=== PATIENT | male | born 1930 | race Caucasian/White ===

== ENCOUNTER 2018-03-29 09:55 | Inpatient (IN) | payer MEDICARE, MEDICAID ==
[~2018-03-29 09:55] MED LIST: Albuterol/Ipratropium 3.0-0.5 MG/3 ML Neb Soln ONE; methylPREDNISolone Sodium Succinate 125 MG/2 ML SDV ONE
[2018-03-29] MEDS ORDERED: Albuterol/Ipratropium 3.0-0.5 MG/3 ML Neb Soln NEB ONE ×2 (10:09→10:13)
[2018-03-29] MEDS ORDERED: methylPREDNISolone Sodium Succinate 125 MG/2 ML SDV IVPUSH SCH (10:15)
--- NOTE | 2018-03-29 10:57 | EDM.PDOC ---
ED HPI GENERAL MEDICAL PROBLEM - General Chief Complaint: General Stated Complaint: SOB Time Seen by Provider: 03/29/18 10:00 Source of Information: Reports: Patient, Family, Longterm Records History Limitations: Reports: Respiratory Distress - History of Present Illness INITIAL COMMENTS - FREE TEXT/NARRATIVE: Patient presents per [facility] with increased work of breathing, shortness of breath, low oxygen sats. He has been more short of breath over the last week. On Monday, was started on prednisone and a Zpack which have been completed. Switched to DuoNebs for 7 days. He is chronically on 2 liters of oxygen but has required 5 liters over the last week. Today, he leaned over on his right side and had increased shortness of breath. Unable to get his sats greater than 80% with any movement at all. EMS gave him a DuoNeb and switched him to CPAP on 7 liters. Was able to get adequate sats in the mid 90s with that. Patient is in respiratory distress with tachypnea on arrival but sats are adequate with CPAP. Onset: Gradual Duration: Day(s): Location: Reports: Chest Severity: Severe Improves with: Reports: Rest Worsens with: Reports: Movement Associated Symptoms: Reports: Cough, Shortness of Breath, Weakness. Denies: Confusion, Chest Pain, Fever/Chills, Nausea/Vomiting Treatments [employer]: Reports: Breathing Treatments, Oxygen - Related Data Allergies Allergy/AdvReac Type Severity Reaction Status Date / Time MUSHROOMS Allergy Cannot Uncoded 03/29/18 09:45 Remember Seafood Allergy Airway Uncoded 03/29/18 09:45 Tightness Home Meds: Home Meds Aspirin [Halfprin] 81 mg PO DAILY 06/06/14 [History] Multivitamin [Multi-Vitamin Daily] 1 tab PO DAILY 06/06/14 [History] Albuterol Sulfate [Ventolin Hfa] 2 inh INH QID 10/15/15 [History] Furosemide 20 mg PO DAILY 10/15/15 [History] Albuterol/Ipratropium [DuoNeb 3.0-0.5 MG/3 ML] 3 ml NEB QIDRT #28 neb 10/22/15 [ Rx] Past Medical History HEENT History: Reports: Macular Degeneration Cardiovascular History: Reports: Afib Respiratory History: Reports: COPD Gastrointestinal History: Reports: Cholelithiasis Neurological History: Reports: Other (See Below) Other Neuro History: DEMENTIA Endocrine/Metabolic History: Reports: Diabetes, Type II - Past Surgical History HEENT Surgical History: Reports: Cataract Surgery Cardiovascular Surgical History: Reports: Percutaneous Transluminal Angioplasty GI Surgical History: Reports: Cholecystectomy, Colonoscopy, EGD Social & Family History - Family History Family Medical History: Noncontributory - Tobacco Use Smoking Status *Q: Former Smoker Years of Tobacco use: 70 Used Tobacco, but Quit: Yes Month/Year Tobacco Last Used: 1995 ED ROS GENERAL - Review of Systems Review Of Systems: See Below Constitutional: Reports: Weakness. Denies: Fever, Chills, Malaise HEENT: Denies: Ear Pain, Rhinitis, Throat Pain Respiratory: Reports: Shortness of Breath, Cough Cardiovascular: Denies: Edema Endocrine: Reports: Fatigue GI/Abdominal: Denies: Abdominal Pain, Nausea, Vomiting : Reports: No Symptoms Musculoskeletal: Reports: No Symptoms Skin: Reports: No Symptoms ED EXAM, GENERAL - Physical Exam Exam: See Below Exam Limited By: No Limitations General Appearance: Alert, WD/WN, Severe Distress Ears: Normal External Exam, Normal TMs Nose: Normal Inspection, Normal Mucosa, No Blood Throat/Mouth: Normal Inspection, Normal Oropharynx Head: Normocephalic Neck: Normal Inspection, Supple Respiratory/Chest: Respiratory Distress, Decreased Breath Sounds, Rales, Wheezing Cardiovascular: No Edema, Other (atrial flutter noted on cardiac sonographer per EMS , confirmed with EKG) GI/Abdominal: Normal Bowel Sounds, Soft, Non-Tender Extremities: Normal Inspection Neurological: Alert, Oriented Skin Exam: Warm, Dry Course - Vital Signs Last Recorded V/S: Last Vital Signs Temp 98.3 F 03/29/18 10:10 Pulse 81 03/29/18 10:37 Resp 18 03/29/18 10:37 BP 123/75 03/29/18 10:10 Pulse Ox 92 L 03/29/18 10:37 - Orders/Labs/Meds Orders: Active Orders 24 hr Category Date Time Status RT Aerosol Therapy [RC] ASDIRECTED Care 03/29/18 10:10 Active RT Aerosol Therapy [RC] ASDIRECTED Care 03/29/18 10:13 Active Chest 1V Frontal [CR] Stat Exams 03/29/18 10:03 Taken methylPREDNISolone Sod Succ [Solu-MEDROL] Med 03/29/18 10:15 Active 125 mg IVPUSH STAT Medication Orders Methylprednisolone Sodium Succinate (Solu-Medrol) 125 mg IVPUSH STAT EMILEE Last Admin: 03/29/18 10:12 Dose: 125 mg Labs: Laboratory Tests 03/29/18 03/29/18 03/29/18 Range/Units 10:17 10:17 10:17 WBC 13.2 H (5.0-10.0) 10^3/uL RBC 4.24 L (4.50-6.00) 10^6/uL Hgb 12.2 L (14.0-18.0) g/dL Hct 39.7 L (40.0-54.0) % MCV 93.6 (82.0-94.0) fL MCH 28.8 (27.0-32.0) pg MCHC 30.7 L (33.0-38.0) g/dL RDW Coeff of Connie 15.7 H (11.0-15.0) % Plt Count 316 (150-400) 10^3/uL Add Manual Diff Yes Neutrophils % (Manual) 93 H (35-85) % Band Neutrophils % 1 (0-5) % Lymphocytes % (Manual) 3 L (21-55) % Monocytes % (Manual) 2 (2-12) % Eosinophils % (Manual) 1 (0-5) % Absolute Neutrophils 12.41 H (1.80-7.00) 10^3/uL Lymphocytes # (Manual) 0.40 L (1.00-4.80) 10^3/uL Monocytes # (Manual) 0.26 (0.00-0.80) 10^3/uL Eosinophils # (Manual) 0.13 (0.00-0.45) 10^3/uL D-Dimer, Quantitative 3.74 H (0.00-0.50) Sodium 141 (136-145) mEq/L Potassium 5.4 H (3.5-5.0) mEq/L Chloride 105 (98-106) mEq/L Carbon Dioxide 29 (21-32) mmol/L BUN 79 H* D (7-18) mg/dL Creatinine 2.2 H (0.7-1.3) mg/dL Est Cr Clr Drug Dosing 17.92 mL/min Estimated GFR (MDRD) 28 L (>=60) mL/min Glucose 104 H D (75-99) mg/dL Calcium 9.0 (8.4-10.1) mg/dL Total Bilirubin 1.1 H (0.0-1.0) mg/dL AST 37 (15-37) U/L ALT 72 (12-78) U/L Alkaline Phosphatase 125 H (46-116) U/L Lactate Dehydrogenase 236 H (100-190) U/L Troponin I < 0.017 (0.00-0.06) ng/mL C-Reactive Protein 16.3 H (0.2-0.8) mg/dL NT-Pro-B Natriuret Pep 8195 H (0-1000) pg/mL Total Protein 7.9 (6.4-8.2) g/dL Albumin 3.2 L (3.4-5.0) g/dL Meds: Medications Generic Name Dose Route Start Last Admin Trade Name Emely PRN Reason Stop Dose Admin Methylprednisolone Sodium Succinate 125 mg 03/29/18 10:15 03/29/18 10:12 Solu-Medrol IVPUSH 125 mg STAT EMILEE Administration Discontinued Medications Generic Name Dose Route Start Last Admin Trade Name Emely PRN Reason Stop Dose Admin Albuterol/Ipratropium Confirm 03/29/18 09:37 03/29/18 10:11 Duoneb 3.0-0.5 Mg/3 Ml Administered 03/29/18 09:38 Not Given Dose 3 ml .ROUTE .STK-MED ONE Albuterol/Ipratropium 3 ml 03/29/18 10:09 03/29/18 10:13 Duoneb 3.0-0.5 Mg/3 Ml NEB 03/29/18 10:10 3 ml ONETIME ONE Administration Albuterol/Ipratropium 3 ml 03/29/18 10:13 03/29/18 11:06 Duoneb 3.0-0.5 Mg/3 Ml NEB 03/29/18 10:14 3 ml ONETIME ONE Administration Furosemide 40 mg 03/29/18 11:04 03/29/18 11:09 Lasix IVPUSH 03/29/18 11:05 40 mg ONETIME ONE Administration Methylprednisolone Sodium Succinate Confirm 03/29/18 09:49 03/29/18 10:11 Solu-Medrol Administered 03/29/18 09:50 Not Given Dose 125 mg .ROUTE .STK-MED ONE - Re-Assessments/Exams Free Text/Narrative Re-Assessment/Exam: 03/29/18 Patient given DuoNeb and IV solu Medrol on arrival. Able to wean him down to 5 liters and maintains sats at 90-92%. Labs reviewed, chest xray. Show elevated ProBNP, elevated D-Dimer, creatinine 2.2. CRP elevated at 16. WBC 13.2. D-Dimer 3.74. Chest xray shows venous congestion. Discussed status with son Wes, questioned if they would like the patient transferred due to CHF, questionable PE, kidney failure, hyperkalemia, and respiratory distress. Patient remains adamant about being a DNR, does not want intubation. Family would like treated here if possible. Departure - Departure Time of Disposition: 12:48 Disposition: Admitted As Inpatient 65 Condition: Undetermined Clinical Impression: CHF, Congestive heart failure COPD (chronic obstructive pulmonary disease) Qualifiers: COPD type: COPD with acute exacerbation Qualified Code(s): J44.1 - Chronic obstructive pulmonary disease with (acute) exacerbation Pneumonia Qualifiers: Pneumonia type: due to unspecified organism Laterality: right Lung location: lower lobe of lung Qualified Code(s): J18.9 - Pneumonia, unspecified organism - Discharge Information *PRESCRIPTION DRUG MONITORING PROGRAM REVIEWED*: No *COPY OF PRESCRIPTION DRUG MONITORING REPORT IN PATIENT ELLEN: No Forms: ED Department Discharge - Problem List & Annotations (1) Pneumonia SNOMED Code(s): 357126853 Code(s): J18.9 - PNEUMONIA, UNSPECIFIED ORGANISM Status: Acute Priority: High Current Visit: Yes Qualifiers: Pneumonia type: aspiration pneumonia Laterality: bilateral Lung location : lower lobe of lung Qualified Code(s): J18.9 - Pneumonia, unspecified organism (2) COPD (chronic obstructive pulmonary disease) SNOMED Code(s): 10445706 Code(s): J44.9 - CHRONIC OBSTRUCTIVE PULMONARY DISEASE, UNSPECIFIED Status : Acute Priority: High Current Visit: Yes Qualifiers: COPD type: COPD with acute exacerbation Qualified Code(s): J44.1 - Chronic obstructive pulmonary disease with (acute) exacerbation (3) CHF, Congestive heart failure SNOMED Code(s): 40628145 Code(s): I50.9 - HEART FAILURE, UNSPECIFIED Status: Acute Priority: High Current Visit: Yes Annotation/Comment:: Acute on Chronic Systolic Congestive Heart Failure - Problem List Review Problem List Initiated/Reviewed/Updated: Yes - My Orders Last 24 Hours: My Active Orders 03/29/18 10:03 Chest 1V Frontal [CR] Stat 03/29/18 10:10 RT Aerosol Therapy [RC] ASDIRECTED 03/29/18 10:13 RT Aerosol Therapy [RC] ASDIRECTED 03/29/18 10:15 methylPREDNISolone Sod Succ [Solu-MEDROL] 125 mg IVPUSH STAT - Assessment/Plan Admission H&P: Please use this note as an admission H&P Last 24 Hours: My Active Orders 03/29/18 10:03 Chest 1V Frontal [CR] Stat 03/29/18 10:10 RT Aerosol Therapy [RC] ASDIRECTED 03/29/18 10:13 RT Aerosol Therapy [RC] ASDIRECTED 03/29/18 10:15 methylPREDNISolone Sod Succ [Solu-MEDROL] 125 mg IVPUSH STAT Assessment:: Palliative Care Patient Acute on Chronic CHF- systolic COPD with acute exacerbation Question PE Question Aspiration Pneumonia Hyperkalemia CKD Plan: Palliative care patient admitted to inpatient care to Dr. Lema. IV Lasix for acute on chronic CHF. Will cover him with IV Cleocin for concerns of aspiration pneumonia. Lovenox SQ for questionable PE. Duplex US of his legs to rule out clot as creatinine too high in order to do CTA of chest. Chronic Kidney disease.
[2018-03-29] MEDS ORDERED: Furosemide 40 MG/4 ML VIAL IVPUSH ONE (11:04)
[2018-03-29 11:14] LABS: CHLORIDE,CL 105 mEq/L (98-106); SODIUM,NA 141 mEq/L (136-145)
[2018-03-29] MEDS ORDERED: Sodium Chloride 0.9% 10 ML Syringe FLUSH PRN (13:14)
[2018-03-29] MEDS ORDERED: Acetaminophen 325 MG Tab PO PRN (13:14)
[2018-03-29] MEDS ORDERED: Enoxaparin 40 MG/0.4 ML Syringe SUBCUT SCH (13:15)
[2018-03-29] MEDS: Clindamycin Phosphate in D5W 300 MG in Premix Bag 1 BAG IV SCH ×4 (14:48→20:12)
[2018-03-29] MEDS: Enoxaparin 80 MG/0.8 ML Syringe SUBCUT SCH (14:48)
[2018-03-29] MEDS: Albuterol/Ipratropium 3.0-0.5 MG/3 ML Neb Soln NEB SCH ×2 (15:29→20:10)
[2018-03-29] MEDS: Furosemide 40 MG/4 ML VIAL IVPUSH SCH (20:04)
[2018-03-29] MEDS: amLODIPine 2.5 MG Tab PO SCH (20:16)
[2018-03-29] MEDS: Acetaminophen 500 MG Tab PO SCH (20:16)
[2018-03-29] MEDS: Formoterol/Mometasone 200-5 MCG 8.8 GM Inhaler IH SCH (20:20)
[2018-03-30] MEDS: Clindamycin Phosphate in D5W 300 MG in Premix Bag 1 BAG IV SCH ×8 (02:15→19:49)
[2018-03-30] MEDS: Aspirin 81 MG Tab.EC PO SCH (07:34)
[2018-03-30] MEDS: Enoxaparin 80 MG/0.8 ML Syringe SUBCUT SCH (07:34)
[2018-03-30] MEDS: Albuterol/Ipratropium 3.0-0.5 MG/3 ML Neb Soln NEB SCH ×4 (07:36→19:49)
[2018-03-30] MEDS: Formoterol/Mometasone 200-5 MCG 8.8 GM Inhaler IH SCH ×2 (07:36→19:50)
[2018-03-30] MEDS: Acetaminophen 500 MG Tab PO SCH ×2 (07:36→19:49)
[2018-03-30] MEDS: Polyvinyl Alcohol 1.4% Ophth Soln 15 ML Bottle EYEBOTH SCH (07:40)
[2018-03-30] MEDS: Insulin Detemir 100 Units/ML 3 ML Pen SUBCUT SCH (07:46)
[2018-03-30] MEDS: Furosemide 40 MG/4 ML VIAL IVPUSH SCH (08:05)
--- NOTE | 2018-03-30 13:51 | PCM.PN ---
- General Info Date of Service: 03/30/18 Admission Dx/Problem (Free Text): Acute on Chronic CHF Pneumonia COPD Exacerbation Elevated D-Dimer Palliative Care patient Functional Status: Reports: Pain Controlled, Tolerating Diet, Other (clark cath intact, draining bloody urine). Denies: Ambulating - Review of Systems General: Reports: Weakness, Fatigue. Denies: Fever HEENT: Reports: No Symptoms Pulmonary: Reports: Shortness of Breath, Cough Cardiovascular: Denies: Chest Pain, Edema, Lightheadedness Gastrointestinal: Denies: Abdominal Pain, Nausea, Vomiting Genitourinary: Reports: Hematuria, Other (intact catheter) Musculoskeletal: Reports: No Symptoms Skin: Reports: No Symptoms Neurological: Reports: Confusion, Weakness Psychiatric: Reports: No Symptoms - Patient Data Vitals - Most Recent: Last Vital Signs Temp 98.1 F 03/30/18 11:49 Pulse 70 03/30/18 11:49 Resp 20 03/30/18 11:49 BP 124/46 L 03/30/18 11:49 Pulse Ox 95 03/30/18 11:49 Weight - Most Recent: 140 lb 9.6 oz I&O - Last 24 Hours: Intake & Output 03/29/18 03/30/18 03/30/18 22:59 06:59 14:59 Intake Total 100 650 250 Output Total 800 600 250 Balance -700 50 0 Lab Results Last 24 Hours: Laboratory Results - last 24 hr 03/29/18 03/30/18 03/30/18 Range/Units 21:53 06:50 06:50 WBC 13.9 H (5.0-10.0) 10^3/uL RBC 3.86 L (4.50-6.00) 10^6/uL Hgb 11.1 L (14.0-18.0) g/dL Hct 35.4 L (40.0-54.0) % MCV 91.7 (82.0-94.0) fL MCH 28.8 (27.0-32.0) pg MCHC 31.4 L (33.0-38.0) g/dL RDW Coeff of Connie 15.0 (11.0-15.0) % Plt Count 296 (150-400) 10^3/uL Add Manual Diff Yes Neutrophils % (Manual) 92 H (35-85) % Lymphocytes % (Manual) 3 L (21-55) % Monocytes % (Manual) 5 (2-12) % Sodium 138 (136-145) mEq/L Potassium 4.6 (3.5-5.0) mEq/L Chloride 101 (98-106) mEq/L Carbon Dioxide 28 (21-32) mmol/L BUN 87 H* (7-18) mg/dL Creatinine 2.3 H (0.7-1.3) mg/dL Est Cr Clr Drug Dosing 17.14 mL/min Estimated GFR (MDRD) 27 L (>=60) mL/min Glucose 199 H D (75-99) mg/dL POC Glucose 253 H (75-105) mg/dl Calcium 8.9 (8.4-10.1) mg/dL C-Reactive Protein 16.4 H (0.2-0.8) mg/dL 03/30/18 03/30/18 Range/Units 07:21 11:39 WBC (5.0-10.0) 10^3/uL RBC (4.50-6.00) 10^6/uL Hgb (14.0-18.0) g/dL Hct (40.0-54.0) % MCV (82.0-94.0) fL MCH (27.0-32.0) pg MCHC (33.0-38.0) g/dL RDW Coeff of Connie (11.0-15.0) % Plt Count (150-400) 10^3/uL Add Manual Diff Neutrophils % (Manual) (35-85) % Lymphocytes % (Manual) (21-55) % Monocytes % (Manual) (2-12) % Sodium (136-145) mEq/L Potassium (3.5-5.0) mEq/L Chloride (98-106) mEq/L Carbon Dioxide (21-32) mmol/L BUN (7-18) mg/dL Creatinine (0.7-1.3) mg/dL Est Cr Clr Drug Dosing mL/min Estimated GFR (MDRD) (>=60) mL/min Glucose (75-99) mg/dL POC Glucose 190 H 251 H (75-105) mg/dl Calcium (8.4-10.1) mg/dL C-Reactive Protein (0.2-0.8) mg/dL Med Orders - Current: Current Medications Acetaminophen (Tylenol) 650 mg PO Q4H PRN PRN Reason: Pain (Mild 1-3)/fever Acetaminophen (Tylenol Extra Strength) 1,000 mg PO BID [facility] Last Admin: 03/30/18 07:36 Dose: 1,000 mg Albuterol/Ipratropium (Duoneb 3.0-0.5 Mg/3 Ml) 3 ml NEB QIDRT [facility] Last Admin: 03/30/18 11:37 Dose: 3 ml Amlodipine Besylate (Norvasc) 5 mg PO BEDTIME [facility] Last Admin: 03/29/18 20:16 Dose: 5 mg Artificial Tears (Liquitears 1.4% Ophth Soln) 0 ml EYEBOTH DAILY [facility] Last Admin: 03/30/18 07:40 Dose: 1 drop Aspirin (Halfprin) 81 mg PO DAILY [facility] Last Admin: 03/30/18 07:34 Dose: 81 mg Bisacodyl (Dulcolax) 5 mg PO DAILY PRN PRN Reason: Constipation Enoxaparin Sodium (Lovenox) 70 mg SUBCUT DAILY [facility] Last Admin: 03/30/18 07:34 Dose: 70 mg Furosemide (Lasix) 40 mg IVPUSH DAILY [facility] Clindamycin Phosphate 300 mg/ (Premix) 50 mls @ 100 mls/hr IV Q6H [facility] Last Admin: 03/30/18 13:27 Dose: 100 mls/hr Insulin Detemir (Levemir) 22 unit SUBCUT DAILY [facility] Last Admin: 03/30/18 07:46 Dose: 22 units Mometasone Furoate/Formoterol Fumar (Dulera 200-5 Mcg) 2 puff IH BIDRT [facility] Last Admin: 03/30/18 07:36 Dose: 2 puff Sodium Chloride (Saline Flush) 10 ml FLUSH ASDIRECTED PRN PRN Reason: Keep Vein Open Discontinued Medications Albuterol/Ipratropium (Duoneb 3.0-0.5 Mg/3 Ml) Confirm Administered Dose 3 ml .ROUTE .STK-MED ONE Stop: 03/29/18 09:38 Last Admin: 03/29/18 10:11 Dose: Not Given Albuterol/Ipratropium (Duoneb 3.0-0.5 Mg/3 Ml) 3 ml NEB ONETIME ONE Stop: 03/29/18 10:10 Last Admin: 10/04/18 10:13 Dose: 3 ml Albuterol/Ipratropium (Duoneb 3.0-0.5 Mg/3 Ml) 3 ml NEB ONETIME ONE Stop: 03/29/18 10:14 Last Admin: 03/29/18 11:06 Dose: 3 ml Enoxaparin Sodium (Lovenox) 60 mg SUBCUT BID [facility] Last Admin: 03/29/18 14:26 Dose: Not Given Furosemide (Lasix) 40 mg IVPUSH ONETIME ONE Stop: 03/29/18 11:05 Last Admin: 03/29/18 11:09 Dose: 40 mg Furosemide (Lasix) 40 mg IVPUSH BID [facility] Last Admin: 03/30/18 08:05 Dose: 40 mg Methylprednisolone Sodium Succinate (Solu-Medrol) Confirm Administered Dose 125 mg .ROUTE .STK-MED ONE Stop: 03/29/18 09:50 Last Admin: 03/29/18 10:11 Dose: Not Given Methylprednisolone Sodium Succinate (Solu-Medrol) 125 mg IVPUSH STAT [facility] Last Admin: 03/29/18 10:12 Dose: 125 mg - Exam Quality Assessment: Supplemental Oxygen General: Alert, Oriented (person only) HEENT: Mucous Membr. Moist/Zarate Neck: Supple Lungs: Decreased Breath Sounds, Crackles, Rhonchi Cardiovascular: Regular Rate, Regular Rhythm GI/Abdominal Exam: Normal Bowel Sounds, Soft, Non-Tender Extremities: Normal Inspection, No Pedal Edema Skin: Warm, Dry Neurological: No New Focal Deficit - Problem List & Annotations (1) Pneumonia SNOMED Code(s): 157267612 Code(s): J18.9 - PNEUMONIA, UNSPECIFIED ORGANISM Status: Acute Priority: High Current Visit: Yes Qualifiers: Laterality: bilateral Lung location: lower lobe of lung Qualified Code(s) : J18.9 - Pneumonia, unspecified organism (2) COPD (chronic obstructive pulmonary disease) SNOMED Code(s): 52934214 Code(s): J44.9 - CHRONIC OBSTRUCTIVE PULMONARY DISEASE, UNSPECIFIED Status : Acute Priority: High Current Visit: Yes Qualifiers: COPD type: COPD with acute exacerbation Qualified Code(s): J44.1 - Chronic obstructive pulmonary disease with (acute) exacerbation (3) CHF, Congestive heart failure SNOMED Code(s): 59946771 Code(s): I50.9 - HEART FAILURE, UNSPECIFIED Status: Acute Priority: High Current Visit: Yes Annotation/Comment:: Acute on Chronic Systolic Congestive Heart Failure (4) Palliative care patient SNOMED Code(s): 537247999 Code(s): Z51.5 - ENCOUNTER FOR PALLIATIVE CARE Status: Acute Current Visit: Yes - Problem List Review Problem List Initiated/Reviewed/Updated: Yes - My Orders Last 24 Hours: My Active Orders 03/29/18 13:03 Resuscitation Status Routine 03/29/18 13:14 Patient Status [ADT] Routine Bedrest Bedside Commode [RC] .PRN Cardiac Monitoring [RC] 0800,1999 Oxygen Therapy [RC] 2355 RT Aerosol Therapy [RC] 0800,1200,1600,1999 Urinary Catheter Assessment [RC] 0800,1999 Vital Signs [RC] 0000,0400,0800,1200,1600,2000 VL Duplex Lwr Ext Veins Comp [US] Routine Acetaminophen [Tylenol] 650 mg PO Q4H PRN Bisacodyl [Dulcolax] 5 mg PO DAILY PRN Sodium Chloride 0.9% [Saline Flush] 10 ml FLUSH ASDIRECTED PRN Saline Lock Insert [OM.PC] Routine 03/29/18 13:15 Insert Urinary Catheter [OM.PC] Q24H 03/29/18 14:00 Clindamycin Phosphate in D5W [Cleocin in D5W] 300 mg Premix Bag 1 bag IV Q6H Enoxaparin [Lovenox] 70 mg SUBCUT DAILY 03/29/18 16:00 Albuterol/Ipratropium [DuoNeb 3.0-0.5 MG/3 ML] 3 ml NEB QIDRT 03/29/18 20:00 Acetaminophen [Tylenol Extra Strength] 1,000 mg PO BID Mometasone/Formoterol [Dulera 200-5 MCG] 2 puff IH BIDRT amLODIPine [Norvasc] 5 mg PO BEDTIME 03/29/18 20:30 Blood Glucose Check, Bedside [] 0730,1130,1730,2030 03/29/18 Dinner 2 Gram Sodium Diet [DIET] 03/30/18 05:00 Daily Weight [Height and Weight] [RC] 0500 03/30/18 08:00 Aspirin [Halfprin] 81 mg PO DAILY Insulin Detemir [Levemir] 22 unit SUBCUT DAILY Polyvinyl Alcohol [LiquiTears 1.4% Ophth Soln] 0 ml EYEBOTH DAILY 03/30/18 08:05 Chest 2V [CR] Routine 03/31/18 08:00 Furosemide [Lasix] 40 mg IVPUSH DAILY - Assessment Assessment:: Patient is alert today, conversing. Oriented to person. Much less respiratory distress than yesterday. On 5 liters of oxygen with sats at 98%. Afebrile. Blood pressure stable. He has pulled at his catheter so does have bloody drainage noted today. Good urine output noted. Labs noted to be high but stable in comparison to yesterday. WBC 13.9, Creatinine 2.3, CRP 16.4. Ultrasound of legs was normal. Will get repeat chest xray today. Decrease Lasix to 40 mg daily. Continue IV Cleocin. Repeat labs in am.
[2018-03-30] MEDS: amLODIPine 2.5 MG Tab PO SCH (19:49)
[2018-03-31] MEDS: Clindamycin Phosphate in D5W 300 MG in Premix Bag 1 BAG IV SCH ×8 (02:15→20:03)
[2018-03-31] MEDS: Enoxaparin 80 MG/0.8 ML Syringe SUBCUT SCH (07:54)
[2018-03-31] MEDS: Albuterol/Ipratropium 3.0-0.5 MG/3 ML Neb Soln NEB SCH ×4 (07:56→20:03)
[2018-03-31] MEDS: Polyvinyl Alcohol 1.4% Ophth Soln 15 ML Bottle EYEBOTH SCH (07:57)
[2018-03-31] MEDS: Insulin Detemir 100 Units/ML 3 ML Pen SUBCUT SCH (07:58)
[2018-03-31] MEDS: Formoterol/Mometasone 200-5 MCG 8.8 GM Inhaler IH SCH ×2 (08:05→20:05)
[2018-03-31] MEDS: Acetaminophen 500 MG Tab PO SCH ×2 (08:06→20:04)
[2018-03-31] MEDS: Aspirin 81 MG Tab.EC PO SCH (08:07)
[2018-03-31] MEDS: Furosemide 40 MG/4 ML VIAL IVPUSH SCH (08:07)
--- NOTE | 2018-03-31 14:36 | PCM.PN ---
- General Info Date of Service: 03/31/18 Functional Status: Reports: Pain Controlled - Review of Systems General: Denies: Fever HEENT: Reports: No Symptoms Pulmonary: Reports: Shortness of Breath, Cough Cardiovascular: Denies: Chest Pain Gastrointestinal: Denies: Abdominal Pain, Diarrhea, Nausea, Vomiting Genitourinary: Reports: Hematuria Musculoskeletal: Denies: Neck Pain Skin: Reports: No Symptoms Neurological: Denies: Dizziness, Headache - Patient Data Vitals - Most Recent: Last Vital Signs Temp 36.9 C 03/31/18 11:39 Pulse 89 03/31/18 11:39 Resp 20 03/31/18 11:39 BP 135/56 L 03/31/18 11:39 Pulse Ox 95 03/31/18 11:39 Weight - Most Recent: 68.356 kg I&O - Last 24 Hours: Intake & Output 03/30/18 03/31/18 03/31/18 22:59 06:59 14:59 Intake Total 485 650 850 Output Total 650 500 Balance -165 150 850 Lab Results Last 24 Hours: Laboratory Results - last 24 hr 03/30/18 03/30/18 03/31/18 Range/Units 16:54 20:22 06:50 WBC 12.1 H (5.0-10.0) 10^3/uL RBC 3.77 L (4.50-6.00) 10^6/uL Hgb 10.8 L (14.0-18.0) g/dL Hct 34.3 L (40.0-54.0) % MCV 91.0 (82.0-94.0) fL MCH 28.6 (27.0-32.0) pg MCHC 31.5 L (33.0-38.0) g/dL RDW Coeff of Connie 15.3 H (11.0-15.0) % Plt Count 314 (150-400) 10^3/uL Neut % (Auto) 84.7 (35-85) % Lymph % (Auto) 5.2 L (10-55) % [place] % (Auto) 9.5 (0-16) % Eos % (Auto) 0.5 (0-5) % Baso % (Auto) 0.1 (0-3) % Neut # (Auto) 10.20 H (1.80-7.00) 10^3/uL Lymph # (Auto) 0.63 L (1.00-4.80) 10^3/uL [place] # (Auto) 1.15 H (0.00-0.80) 10^3/uL Eos # (Auto) 0.06 (0.00-0.45) 10^3/uL Baso # (Auto) 0.01 10^3/uL Sodium (136-145) mEq/L Potassium (3.5-5.0) mEq/L Chloride (98-106) mEq/L Carbon Dioxide (21-32) mmol/L BUN (7-18) mg/dL Creatinine (0.7-1.3) mg/dL Est Cr Clr Drug Dosing mL/min Estimated GFR (MDRD) (>=60) mL/min Glucose (75-99) mg/dL POC Glucose 152 H 228 H (75-105) mg/dl Calcium (8.4-10.1) mg/dL C-Reactive Protein (0.2-0.8) mg/dL 03/31/18 03/31/18 03/31/18 Range/Units 06:50 07:47 11:38 WBC (5.0-10.0) 10^3/uL RBC (4.50-6.00) 10^6/uL Hgb (14.0-18.0) g/dL Hct (40.0-54.0) % MCV (82.0-94.0) fL MCH (27.0-32.0) pg MCHC (33.0-38.0) g/dL RDW Coeff of Connie (11.0-15.0) % Plt Count (150-400) 10^3/uL Neut % (Auto) (35-85) % Lymph % (Auto) (10-55) % [place] % (Auto) (0-16) % Eos % (Auto) (0-5) % Baso % (Auto) (0-3) % Neut # (Auto) (1.80-7.00) 10^3/uL Lymph # (Auto) (1.00-4.80) 10^3/uL [place] # (Auto) (0.00-0.80) 10^3/uL Eos # (Auto) (0.00-0.45) 10^3/uL Baso # (Auto) 10^3/uL Sodium 136 (136-145) mEq/L Potassium 4.7 (3.5-5.0) mEq/L Chloride 100 (98-106) mEq/L Carbon Dioxide 28 (21-32) mmol/L BUN 103 H* (7-18) mg/dL Creatinine 2.4 H (0.7-1.3) mg/dL Est Cr Clr Drug Dosing 16.43 mL/min Estimated GFR (MDRD) 26 L (>=60) mL/min Glucose 150 H (75-99) mg/dL POC Glucose 129 H 211 H (75-105) mg/dl Calcium 8.2 L (8.4-10.1) mg/dL C-Reactive Protein 10.9 H (0.2-0.8) mg/dL Med Orders - Current: Current Medications Acetaminophen (Tylenol) 650 mg PO Q4H PRN PRN Reason: Pain (Mild 1-3)/fever Acetaminophen (Tylenol Extra Strength) 1,000 mg PO BID [facility] Last Admin: 03/31/18 08:06 Dose: 1,000 mg Albuterol/Ipratropium (Duoneb 3.0-0.5 Mg/3 Ml) 3 ml NEB QIDRT [facility] Last Admin: 03/31/18 11:37 Dose: 3 ml Amlodipine Besylate (Norvasc) 5 mg PO BEDTIME [facility] Last Admin: 03/30/18 19:49 Dose: 5 mg Artificial Tears (Liquitears 1.4% Ophth Soln) 0 ml EYEBOTH DAILY [facility] Last Admin: 03/31/18 07:57 Dose: 1 drop Aspirin (Halfprin) 81 mg PO DAILY [facility] Last Admin: 03/31/18 08:07 Dose: 81 mg Bisacodyl (Dulcolax) 5 mg PO DAILY PRN PRN Reason: Constipation Enoxaparin Sodium (Lovenox) 70 mg SUBCUT DAILY [facility] Last Admin: 03/31/18 07:54 Dose: 70 mg Furosemide (Lasix) 40 mg IVPUSH DAILY [facility] Last Admin: 03/31/18 08:07 Dose: 40 mg Clindamycin Phosphate 300 mg/ (Premix) 50 mls @ 100 mls/hr IV Q6H [facility] Last Admin: 03/31/18 13:46 Dose: 100 mls/hr Insulin Detemir (Levemir) 22 unit SUBCUT DAILY [facility] Last Admin: 03/31/18 07:58 Dose: 22 units Mometasone Furoate/Formoterol Fumar (Dulera 200-5 Mcg) 2 puff IH BIDRT [facility] Last Admin: 03/31/18 08:05 Dose: 2 puff Sodium Chloride (Saline Flush) 10 ml FLUSH ASDIRECTED PRN PRN Reason: Keep Vein Open Discontinued Medications Albuterol/Ipratropium (Duoneb 3.0-0.5 Mg/3 Ml) Confirm Administered Dose 3 ml .ROUTE .STK-MED ONE Stop: 03/29/18 09:38 Last Admin: 03/29/18 10:11 Dose: Not Given Albuterol/Ipratropium (Duoneb 3.0-0.5 Mg/3 Ml) 3 ml NEB ONETIME ONE Stop: 03/29/18 10:10 Last Admin: 03/29/18 10:13 Dose: 3 ml Albuterol/Ipratropium (Duoneb 3.0-0.5 Mg/3 Ml) 3 ml NEB ONETIME ONE Stop: 03/29/18 10:14 Last Admin: 03/29/18 11:06 Dose: 3 ml Enoxaparin Sodium (Lovenox) 60 mg SUBCUT BID [facility] Last Admin: 03/29/18 14:26 Dose: Not Given Furosemide (Lasix) 40 mg IVPUSH ONETIME ONE Stop: 03/29/18 11:05 Last Admin: 03/29/18 11:09 Dose: 40 mg Furosemide (Lasix) 40 mg IVPUSH BID [facility] Last Admin: 03/30/18 08:05 Dose: 40 mg Methylprednisolone Sodium Succinate (Solu-Medrol) Confirm Administered Dose 125 mg .ROUTE .STK-MED ONE Stop: 03/29/18 09:50 Last Admin: 03/29/18 10:11 Dose: Not Given Methylprednisolone Sodium Succinate (Solu-Medrol) 125 mg IVPUSH STAT [facility] Last Admin: 03/29/18 10:12 Dose: 125 mg - Exam Quality Assessment: Supplemental Oxygen General: Alert, Oriented Lungs: Crackles, Rhonchi Cardiovascular: Regular Rate, Regular Rhythm GI/Abdominal Exam: Soft Peripheral Pulses: 2+: Radial (L), Radial (R) Skin: Warm, Dry, Intact Neurological: No New Focal Deficit Psy/Mental Status: Alert - Problem List Review Problem List Initiated/Reviewed/Updated: Yes - Assessment Assessment:: Patient is alert today, conversing. Oriented to person. Much less respiratory distress than yesterday. On 5 liters of oxygen with sats at 98%. Afebrile. Blood pressure stable. He has pulled at his catheter so does have bloody drainage noted today. Good urine output noted. Labs noted to be high but stable in comparison to yesterday. WBC 13.9, Creatinine 2.3, CRP 16.4. Ultrasound of legs was normal. Will get repeat chest xray today. Decrease Lasix to 40 mg daily. Continue IV Cleocin. Repeat labs in am. 03/31/18 No significant change from previous exam. BUN climbing but appears stable. Labs otherwise stable. Repeat labs in AM.
[2018-03-31] MEDS: amLODIPine 2.5 MG Tab PO SCH (20:03)
[2018-03-31] MEDS: Bisacodyl 5 MG Tab PO PRN (20:04)
[2018-04-01] MEDS: Clindamycin Phosphate in D5W 300 MG in Premix Bag 1 BAG IV SCH ×8 (01:45→19:53)
[2018-04-01] MEDS: Albuterol/Ipratropium 3.0-0.5 MG/3 ML Neb Soln NEB SCH ×4 (08:04→19:53)
[2018-04-01] MEDS: Furosemide 40 MG/4 ML VIAL IVPUSH SCH (08:04)
[2018-04-01] MEDS: Aspirin 81 MG Tab.EC PO SCH (08:04)
[2018-04-01] MEDS: Enoxaparin 80 MG/0.8 ML Syringe SUBCUT SCH (08:04)
[2018-04-01] MEDS: Acetaminophen 500 MG Tab PO SCH ×2 (08:04→19:53)
[2018-04-01] MEDS: Formoterol/Mometasone 200-5 MCG 8.8 GM Inhaler IH SCH ×2 (08:05→19:53)
[2018-04-01] MEDS: Polyvinyl Alcohol 1.4% Ophth Soln 15 ML Bottle EYEBOTH SCH (08:05)
[2018-04-01] MEDS: Insulin Detemir 100 Units/ML 3 ML Pen SUBCUT SCH (08:06)
--- NOTE | 2018-04-01 18:47 | PCM.PN ---
- General Info Date of Service: 04/01/18 Functional Status: Reports: Pain Controlled - Review of Systems General: Reports: Weakness, Fatigue. Denies: Fever HEENT: Reports: No Symptoms Pulmonary: Reports: Shortness of Breath, Cough Cardiovascular: Denies: Chest Pain Gastrointestinal: Denies: Abdominal Pain, Nausea, Vomiting Skin: Reports: No Symptoms - Patient Data Vitals - Most Recent: Last Vital Signs Temp 36.7 C 04/01/18 16:00 Pulse 69 04/01/18 16:00 Resp 20 04/01/18 16:00 BP 134/51 L 04/01/18 16:00 Pulse Ox 91 L 04/01/18 16:00 Weight - Most Recent: 66.996 kg I&O - Last 24 Hours: Intake & Output 04/01/18 04/01/18 04/01/18 06:59 14:59 22:59 Intake Total 524 50 700 Output Total 500 1125 Balance 24 50 -425 Lab Results Last 24 Hours: Laboratory Results - last 24 hr 03/31/18 03/31/18 04/01/18 Range/Units 17:19 20:30 07:00 WBC 10.9 H (5.0-10.0) 10^3/uL RBC 3.84 L (4.50-6.00) 10^6/uL Hgb 11.2 L (14.0-18.0) g/dL Hct 35.0 L (40.0-54.0) % MCV 91.1 (82.0-94.0) fL MCH 29.2 (27.0-32.0) pg MCHC 32.0 L (33.0-38.0) g/dL RDW Coeff of Connie 15.3 H (11.0-15.0) % Plt Count 339 (150-400) 10^3/uL Add Manual Diff Yes Neutrophils % (Manual) 75 (35-85) % Band Neutrophils % 3 (0-5) % Lymphocytes % (Manual) 9 L (21-55) % Monocytes % (Manual) 7 (2-12) % Eosinophils % (Manual) 4 (0-5) % Metamyelocytes % 2 % Sodium (136-145) mEq/L Potassium (3.5-5.0) mEq/L Chloride (98-106) mEq/L Carbon Dioxide (21-32) mmol/L BUN (7-18) mg/dL Creatinine (0.7-1.3) mg/dL Est Cr Clr Drug Dosing mL/min Estimated GFR (MDRD) (>=60) mL/min Glucose (75-99) mg/dL POC Glucose 98 161 H (75-105) mg/dl Calcium (8.4-10.1) mg/dL C-Reactive Protein (0.2-0.8) mg/dL 04/01/18 04/01/18 04/01/18 Range/Units 07:00 07:39 11:38 WBC (5.0-10.0) 10^3/uL RBC (4.50-6.00) 10^6/uL Hgb (14.0-18.0) g/dL Hct (40.0-54.0) % MCV (82.0-94.0) fL MCH (27.0-32.0) pg MCHC (33.0-38.0) g/dL RDW Coeff of Connie (11.0-15.0) % Plt Count (150-400) 10^3/uL Add Manual Diff Neutrophils % (Manual) (35-85) % Band Neutrophils % (0-5) % Lymphocytes % (Manual) (21-55) % Monocytes % (Manual) (2-12) % Eosinophils % (Manual) (0-5) % Metamyelocytes % % Sodium 137 (136-145) mEq/L Potassium 4.9 (3.5-5.0) mEq/L Chloride 100 (98-106) mEq/L Carbon Dioxide 30 (21-32) mmol/L BUN 107 H* (7-18) mg/dL Creatinine 2.4 H (0.7-1.3) mg/dL Est Cr Clr Drug Dosing 16.43 mL/min Estimated GFR (MDRD) 26 L (>=60) mL/min Glucose 145 H (75-99) mg/dL POC Glucose 133 H 247 H (75-105) mg/dl Calcium 8.8 (8.4-10.1) mg/dL C-Reactive Protein 7.0 H (0.2-0.8) mg/dL 04/01/18 Range/Units 17:02 WBC (5.0-10.0) 10^3/uL RBC (4.50-6.00) 10^6/uL Hgb (14.0-18.0) g/dL Hct (40.0-54.0) % MCV (82.0-94.0) fL MCH (27.0-32.0) pg MCHC (33.0-38.0) g/dL RDW Coeff of Connie (11.0-15.0) % Plt Count (150-400) 10^3/uL Add Manual Diff Neutrophils % (Manual) (35-85) % Band Neutrophils % (0-5) % Lymphocytes % (Manual) (21-55) % Monocytes % (Manual) (2-12) % Eosinophils % (Manual) (0-5) % Metamyelocytes % % Sodium (136-145) mEq/L Potassium (3.5-5.0) mEq/L Chloride (98-106) mEq/L Carbon Dioxide (21-32) mmol/L BUN (7-18) mg/dL Creatinine (0.7-1.3) mg/dL Est Cr Clr Drug Dosing mL/min Estimated GFR (MDRD) (>=60) mL/min Glucose (75-99) mg/dL POC Glucose 151 H (75-105) mg/dl Calcium (8.4-10.1) mg/dL C-Reactive Protein (0.2-0.8) mg/dL Med Orders - Current: Current Medications Acetaminophen (Tylenol) 650 mg PO Q4H PRN PRN Reason: Pain (Mild 1-3)/fever Acetaminophen (Tylenol Extra Strength) 1,000 mg PO BID [facility] Last Admin: 04/01/18 08:04 Dose: 1,000 mg Albuterol/Ipratropium (Duoneb 3.0-0.5 Mg/3 Ml) 3 ml NEB QIDRT [facility] Last Admin: 04/01/18 16:13 Dose: 3 ml Amlodipine Besylate (Norvasc) 5 mg PO BEDTIME [facility] Last Admin: 03/31/18 20:03 Dose: 5 mg Artificial Tears (Liquitears 1.4% Ophth Soln) 0 ml EYEBOTH DAILY [facility] Last Admin: 04/01/18 08:05 Dose: 1 drop Aspirin (Halfprin) 81 mg PO DAILY [facility] Last Admin: 04/01/18 08:04 Dose: 81 mg Bisacodyl (Dulcolax) 5 mg PO DAILY PRN PRN Reason: Constipation Last Admin: 03/31/18 20:04 Dose: 5 mg Enoxaparin Sodium (Lovenox) 70 mg SUBCUT DAILY [facility] Last Admin: 04/01/18 08:04 Dose: 70 mg Furosemide (Lasix) 40 mg IVPUSH DAILY [facility] Last Admin: 04/01/18 08:04 Dose: 40 mg Clindamycin Phosphate 300 mg/ (Premix) 50 mls @ 100 mls/hr IV Q6H [facility] Last Admin: 04/01/18 14:16 Dose: 100 mls/hr Insulin Detemir (Levemir) 22 unit SUBCUT DAILY [facility] Last Admin: 04/01/18 08:06 Dose: 22 units Mometasone Furoate/Formoterol Fumar (Dulera 200-5 Mcg) 2 puff IH BIDRT [facility] Last Admin: 04/01/18 08:05 Dose: 2 puff Sodium Chloride (Saline Flush) 10 ml FLUSH ASDIRECTED PRN PRN Reason: Keep Vein Open Discontinued Medications Albuterol/Ipratropium (Duoneb 3.0-0.5 Mg/3 Ml) Confirm Administered Dose 3 ml .ROUTE .STK-MED ONE Stop: 03/29/18 09:38 Last Admin: 03/29/18 10:11 Dose: Not Given Albuterol/Ipratropium (Duoneb 3.0-0.5 Mg/3 Ml) 3 ml NEB ONETIME ONE Stop: 03/29/18 10:10 Last Admin: 03/29/18 10:13 Dose: 3 ml Albuterol/Ipratropium (Duoneb 3.0-0.5 Mg/3 Ml) 3 ml NEB ONETIME ONE Stop: 03/29/18 10:14 Last Admin: 03/29/18 11:06 Dose: 3 ml Enoxaparin Sodium (Lovenox) 60 mg SUBCUT BID [facility] Last Admin: 03/29/18 14:26 Dose: Not Given Furosemide (Lasix) 40 mg IVPUSH ONETIME ONE Stop: 03/29/18 11:05 Last Admin: 03/29/18 11:09 Dose: 40 mg Furosemide (Lasix) 40 mg IVPUSH BID [facility] Last Admin: 03/30/18 08:05 Dose: 40 mg Methylprednisolone Sodium Succinate (Solu-Medrol) Confirm Administered Dose 125 mg .ROUTE .STK-MED ONE Stop: 03/29/18 09:50 Last Admin: 03/29/18 10:11 Dose: Not Given Methylprednisolone Sodium Succinate (Solu-Medrol) 125 mg IVPUSH STAT [facility] Last Admin: 03/29/18 10:12 Dose: 125 mg - Exam Quality Assessment: Supplemental Oxygen General: Alert, Oriented Neck: Supple Lungs: Decreased Breath Sounds, Wheezing Cardiovascular: Regular Rate, Regular Rhythm GI/Abdominal Exam: Soft Extremities: No Pedal Edema Peripheral Pulses: 2+: Radial (L), Radial (R) Skin: Warm, Dry, Intact Psy/Mental Status: Alert, Normal Affect, Normal Mood - Problem List Review Problem List Initiated/Reviewed/Updated: Yes - Assessment Assessment:: Patient is alert today, conversing. Oriented to person. Much less respiratory distress than yesterday. On 5 liters of oxygen with sats at 98%. Afebrile. Blood pressure stable. He has pulled at his catheter so does have bloody drainage noted today. Good urine output noted. Labs noted to be high but stable in comparison to yesterday. WBC 13.9, Creatinine 2.3, CRP 16.4. Ultrasound of legs was normal. Will get repeat chest xray today. Decrease Lasix to 40 mg daily. Continue IV Cleocin. Repeat labs in am. 03/31/18 No significant change from previous exam. BUN climbing but appears stable. Labs otherwise stable. Repeat labs in AM. 04/01/18 relatively unchanged from previous exam. BUN remains elevated. Labs are improving. WBC near normal. Continues to have bloody drainage in [place] as he is anticoagulated and attempted to pull clark on admit.
[2018-04-01] MEDS: amLODIPine 2.5 MG Tab PO SCH (19:53)
[2018-04-01] MEDS: Bisacodyl 5 MG Tab PO PRN (19:53)
[2018-04-02] MEDS: Clindamycin Phosphate in D5W 300 MG in Premix Bag 1 BAG IV SCH ×8 (01:38→19:55)
[2018-04-02] MEDS: Furosemide 40 MG/4 ML VIAL IVPUSH SCH (07:38)
[2018-04-02] MEDS: Enoxaparin 80 MG/0.8 ML Syringe SUBCUT SCH (07:46)
[2018-04-02] MEDS: Albuterol/Ipratropium 3.0-0.5 MG/3 ML Neb Soln NEB SCH ×4 (07:47→19:56)
[2018-04-02] MEDS: Aspirin 81 MG Tab.EC PO SCH (07:50)
[2018-04-02] MEDS: Formoterol/Mometasone 200-5 MCG 8.8 GM Inhaler IH SCH ×2 (07:50→19:55)
[2018-04-02] MEDS: Acetaminophen 500 MG Tab PO SCH ×2 (07:51→19:57)
[2018-04-02] MEDS: Polyvinyl Alcohol 1.4% Ophth Soln 15 ML Bottle EYEBOTH SCH (07:52)
[2018-04-02] MEDS: Insulin Detemir 100 Units/ML 3 ML Pen SUBCUT SCH (07:54)
[2018-04-02] MEDS ORDERED: Bisacodyl 10 MG Supp RECTAL ONE (09:06)
--- NOTE | 2018-04-02 10:42 | PCM.PN ---
- General Info Date of Service: 04/02/18 Admission Dx/Problem (Free Text): Acute on Chronic CHF Pneumonia COPD Exacerbation Elevated [facility] patient Functional Status: Reports: Pain Controlled, Tolerating Diet. Denies: Ambulating - Review of Systems General: Reports: Weakness, Fatigue, Malaise. Denies: Fever HEENT: Reports: No Symptoms Pulmonary: Reports: Shortness of Breath, Cough, Wheezing Cardiovascular: Denies: Chest Pain, Edema, Lightheadedness Gastrointestinal: Denies: Abdominal Pain, Nausea, Vomiting Genitourinary: Reports: No Symptoms Musculoskeletal: Reports: No Symptoms Skin: Reports: No Symptoms Neurological: Reports: Confusion - Patient Data Vitals - Most Recent: Last Vital Signs Temp 97.4 F 04/02/18 08:00 Pulse 67 04/02/18 08:00 Resp 24 H 04/02/18 08:00 BP 124/48 L 04/02/18 08:00 Pulse Ox 94 L 04/02/18 08:00 Weight - Most Recent: 152 lb 9.6 oz I&O - Last 24 Hours: Intake & Output 04/01/18 04/02/18 04/02/18 22:59 06:59 14:59 Intake Total 850 550 Output Total 1125 700 Balance -275 -150 Lab Results Last 24 Hours: Laboratory Results - last 24 hr 04/01/18 04/01/18 04/01/18 Range/Units 11:38 17:02 20:39 WBC (5.0-10.0) 10^3/uL RBC (4.50-6.00) 10^6/uL Hgb (14.0-18.0) g/dL Hct (40.0-54.0) % MCV (82.0-94.0) fL MCH (27.0-32.0) pg MCHC (33.0-38.0) g/dL RDW Coeff of Connie (11.0-15.0) % Plt Count (150-400) 10^3/uL Add Manual Diff Neutrophils % (Manual) (35-85) % Band Neutrophils % (0-5) % Lymphocytes % (Manual) (21-55) % Monocytes % (Manual) (2-12) % Eosinophils % (Manual) (0-5) % Absolute Neutrophils (1.80-7.00) 10^3/uL Lymphocytes # (Manual) (1.00-4.80) 10^3/uL Monocytes # (Manual) (0.00-0.80) 10^3/uL Eosinophils # (Manual) (0.00-0.45) 10^3/uL Sodium (136-145) mEq/L Potassium (3.5-5.0) mEq/L Chloride (98-106) mEq/L Carbon Dioxide (21-32) mmol/L BUN (7-18) mg/dL Creatinine (0.7-1.3) mg/dL Est Cr Clr Drug Dosing mL/min Estimated GFR (MDRD) (>=60) mL/min Glucose (75-99) mg/dL POC Glucose 247 H 151 H 250 H (75-105) mg/dl Calcium (8.4-10.1) mg/dL C-Reactive Protein (0.2-0.8) mg/dL 04/02/18 04/02/18 04/02/18 Range/Units 07:52 08:40 08:40 WBC 10.3 H (5.0-10.0) 10^3/uL RBC 3.59 L (4.50-6.00) 10^6/uL Hgb 10.6 L (14.0-18.0) g/dL Hct 33.2 L (40.0-54.0) % MCV 92.5 (82.0-94.0) fL MCH 29.5 (27.0-32.0) pg MCHC 31.9 L (33.0-38.0) g/dL RDW Coeff of Connie 15.7 H (11.0-15.0) % Plt Count 332 (150-400) 10^3/uL Add Manual Diff Yes Neutrophils % (Manual) 84 (35-85) % Band Neutrophils % 1 (0-5) % Lymphocytes % (Manual) 5 L (21-55) % Monocytes % (Manual) 9 (2-12) % Eosinophils % (Manual) 1 (0-5) % Absolute Neutrophils 8.76 H (1.80-7.00) 10^3/uL Lymphocytes # (Manual) 0.52 L (1.00-4.80) 10^3/uL Monocytes # (Manual) 0.93 H (0.00-0.80) 10^3/uL Eosinophils # (Manual) 0.10 (0.00-0.45) 10^3/uL Sodium 137 (136-145) mEq/L Potassium 5.2 H (3.5-5.0) mEq/L Chloride 101 (98-106) mEq/L Carbon Dioxide 30 (21-32) mmol/L BUN 94 H* (7-18) mg/dL Creatinine 2.3 H (0.7-1.3) mg/dL Est Cr Clr Drug Dosing 17.14 mL/min Estimated GFR (MDRD) 27 L (>=60) mL/min Glucose 202 H D (75-99) mg/dL POC Glucose 116 H (75-105) mg/dl Calcium 8.7 (8.4-10.1) mg/dL C-Reactive Protein 5.8 H (0.2-0.8) mg/dL Med Orders - Current: Current Medications Acetaminophen (Tylenol) 650 mg PO Q4H PRN PRN Reason: Pain (Mild 1-3)/fever Acetaminophen (Tylenol Extra Strength) 1,000 mg PO BID [facility] Last Admin: 04/02/18 07:51 Dose: 1,000 mg Albuterol/Ipratropium (Duoneb 3.0-0.5 Mg/3 Ml) 3 ml NEB QIDRT [facility] Last Admin: 04/02/18 07:47 Dose: 3 ml Amlodipine Besylate (Norvasc) 5 mg PO BEDTIME [facility] Last Admin: 04/01/18 19:53 Dose: 5 mg Artificial Tears (Liquitears 1.4% Ophth Soln) 0 ml EYEBOTH DAILY [facility] Last Admin: 04/02/18 07:52 Dose: 1 drop Aspirin (Halfprin) 81 mg PO DAILY [facility] Last Admin: 04/02/18 07:50 Dose: 81 mg Bisacodyl (Dulcolax) 5 mg PO DAILY PRN PRN Reason: Constipation Last Admin: 04/01/18 19:53 Dose: 5 mg Enoxaparin Sodium (Lovenox) 30 mg SUBCUT DAILY@1200 [facility] Furosemide (Lasix) 40 mg PO DAILY [facility] Clindamycin Phosphate 300 mg/ (Premix) 50 mls @ 100 mls/hr IV Q6H [facility] Last Admin: 04/02/18 07:42 Dose: 100 mls/hr Insulin Detemir (Levemir) 22 unit SUBCUT DAILY [facility] Last Admin: 04/02/18 07:54 Dose: 22 units Mometasone Furoate/Formoterol Fumar (Dulera 200-5 Mcg) 2 puff IH BIDRT [facility] Last Admin: 04/02/18 07:50 Dose: 2 puff Sodium Chloride (Saline Flush) 10 ml FLUSH ASDIRECTED PRN PRN Reason: Keep Vein Open Discontinued Medications Albuterol/Ipratropium (Duoneb 3.0-0.5 Mg/3 Ml) Confirm Administered Dose 3 ml .ROUTE .STK-MED ONE Stop: 03/29/18 09:38 Last Admin: 03/29/18 10:11 Dose: Not Given Albuterol/Ipratropium (Duoneb 3.0-0.5 Mg/3 Ml) 3 ml NEB ONETIME ONE Stop: 03/29/18 10:10 Last Admin: 03/29/18 10:13 Dose: 3 ml Albuterol/Ipratropium (Duoneb 3.0-0.5 Mg/3 Ml) 3 ml NEB ONETIME ONE Stop: 03/29/18 10:14 Last Admin: 03/29/18 11:06 Dose: 3 ml Bisacodyl (Dulcolax) 10 mg RECTAL ONETIME ONE Stop: 04/02/18 09:07 Last Admin: 04/02/18 09:56 Dose: 10 mg Enoxaparin Sodium (Lovenox) 60 mg SUBCUT BID [facility] Last Admin: 03/29/18 14:26 Dose: Not Given Enoxaparin Sodium (Lovenox) 70 mg SUBCUT DAILY [facility] Last Admin: 04/02/18 07:46 Dose: 70 mg Furosemide (Lasix) 40 mg IVPUSH ONETIME ONE Stop: 03/29/18 11:05 Last Admin: 03/29/18 11:09 Dose: 40 mg Furosemide (Lasix) 40 mg IVPUSH BID [facility] Last Admin: 03/30/18 08:05 Dose: 40 mg Furosemide (Lasix) 40 mg IVPUSH DAILY [facility] Last Admin: 04/02/18 07:38 Dose: 40 mg Methylprednisolone Sodium Succinate (Solu-Medrol) Confirm Administered Dose 125 mg .ROUTE .STK-MED ONE Stop: 03/29/18 09:50 Last Admin: 03/29/18 10:11 Dose: Not Given Methylprednisolone Sodium Succinate (Solu-Medrol) 125 mg IVPUSH STAT [facility] Last Admin: 03/29/18 10:12 Dose: 125 mg - Exam Quality Assessment: Supplemental Oxygen General: Alert, Oriented (person only), Cooperative HEENT: Mucous Membr. Moist/[place] Neck: Supple Lungs: Decreased Breath Sounds, Crackles (right base) Cardiovascular: Regular Rate, Regular Rhythm GI/Abdominal Exam: Normal Bowel Sounds, Soft, Non-Tender Extremities: Normal Inspection, No Pedal Edema Skin: Warm, Dry Neurological: No New Focal Deficit - Problem List & Annotations (1) Pneumonia SNOMED Code(s): 010238716 Code(s): J18.9 - PNEUMONIA, UNSPECIFIED ORGANISM Status: Acute Priority: High Current Visit: Yes Qualifiers: Laterality: bilateral Lung location: lower lobe of lung (2) COPD (chronic obstructive pulmonary disease) SNOMED Code(s): 17714959 Code(s): J44.9 - CHRONIC OBSTRUCTIVE PULMONARY DISEASE, UNSPECIFIED Status : Acute Priority: High Current Visit: Yes Qualifiers: COPD type: COPD with acute exacerbation Qualified Code(s): J44.1 - Chronic obstructive pulmonary disease with (acute) exacerbation (3) CHF, Congestive heart failure SNOMED Code(s): 33200277 Code(s): I50.9 - HEART FAILURE, UNSPECIFIED Status: Acute Priority: High Current Visit: Yes Annotation/Comment:: Acute on Chronic Systolic Congestive Heart Failure (4) Palliative care patient SNOMED Code(s): 710744436 Code(s): Z51.5 - ENCOUNTER FOR PALLIATIVE CARE Status: Acute Current Visit: Yes - Problem List Review Problem List Initiated/Reviewed/Updated: Yes - My Orders Last 24 Hours: My Active Orders 04/02/18 12:00 Enoxaparin [Lovenox] 30 mg SUBCUT DAILY@1200 04/03/18 08:00 Furosemide [Lasix] 40 mg PO DAILY - Assessment Assessment:: Patient is alert today, conversing. Oriented to person. Much less respiratory distress than yesterday. On 5 liters of oxygen with sats at 98%. Afebrile. Blood pressure stable. He has pulled at his catheter so does have bloody drainage noted today. Good urine output noted. Labs noted to be high but stable in comparison to yesterday. WBC 13.9, Creatinine 2.3, CRP 16.4. Ultrasound of legs was normal. Will get repeat chest xray today. Decrease Lasix to 40 mg daily. Continue IV Cleocin. Repeat labs in am. 03/31/18 No significant change from previous exam. BUN climbing but appears stable. Labs otherwise stable. Repeat labs in AM. 04/01/18 relatively unchanged from previous exam. BUN remains elevated. Labs are improving. WBC near normal. Continues to have bloody drainage in calrk as he is anticoagulated and attempted to pull clark on admit. - Plan Plan:: Patient has stabilized. Is still requiring 5 liters of oxygen as sats do drop with movement yet at times but will maintain over 90%. He denies any concerns this am, oriented to person only but cooperative. Singing songs this am. Has been afebrile. Lungs are diminished with crackles in the right base. WBC 10.3 , stable. BUN is slightly improved to 94. Creatinine 2.3. CRP 5.8. Will continue IV Cleocin. Discontinue clark catheter. Reduce Lovenox to 30 mg daily. Switch IV Lasix to oral. Possible discharge back to the [facility] tomorrow.
[2018-04-02] MEDS ORDERED: Enoxaparin 30 MG/0.3 ML Syringe SUBCUT SCH (12:00)
[2018-04-02] MEDS: Polyethylene Glycol 3350 Powder 17 GM Packet PO SCH ×2 (14:45→19:56)
[2018-04-02] MEDS: amLODIPine 2.5 MG Tab PO SCH (19:56)
[2018-04-03] MEDS: Clindamycin Phosphate in D5W 300 MG in Premix Bag 1 BAG IV SCH ×4 (01:38→07:37)
[2018-04-03] MEDS: Formoterol/Mometasone 200-5 MCG 8.8 GM Inhaler IH SCH (07:36)
[2018-04-03] MEDS: Polyethylene Glycol 3350 Powder 17 GM Packet PO SCH (07:37)
[2018-04-03] MEDS: Albuterol/Ipratropium 3.0-0.5 MG/3 ML Neb Soln NEB SCH (07:37)
[2018-04-03] MEDS: Acetaminophen 500 MG Tab PO SCH (07:44)
[2018-04-03] MEDS: Polyvinyl Alcohol 1.4% Ophth Soln 15 ML Bottle EYEBOTH SCH (07:44)
[2018-04-03] MEDS: Aspirin 81 MG Tab.EC PO SCH (07:44)
[2018-04-03] MEDS: Insulin Detemir 100 Units/ML 3 ML Pen SUBCUT SCH (07:45)
[2018-04-03 08:00] VITALS: BP 138/55
[2018-04-03] MEDS ORDERED: Furosemide 40 MG Tab PO SCH (08:00)
--- NOTE | 2018-04-03 21:43 | PCM.DCSUM1 ---
Discharge Summary - Hospital Course Free Text/Narrative:: Patient presented from [facility] with hypoxia, shortness of breath. He had been diagnosed a week prior with an URI and was placed on a course of zithromax and prednisone. Had changed his nebs to DuoNebs. He was noted to have increased shortness of breath and his sats had dropped in to the 70s with any movement despite 5 liters of oxygen. Was placed on CPAP per EMS enroute to [place] and his sats were improved in to the 90s. He was in moderate respiratory distress in ER. IV Solu Medrol, IV Lasix was given with consecutive duonebs and were able to keep sats above 90% on 5 liters. Labs did indicate acute on chronic CHF as ProBNP nearly 9000. D-dimer was elevated at 3.74 but unable to do PE study due to elevated creatinine. Chest xray concerning for pneumonia as well. Admitted and started on Cleocin due to concerns with aspiration. Started on IV Lasix. Keith cath inserted due to hypoxia with movement. Covered with Lovenox for concerns with PE. Patient DNR Diagnosis: Stroke: No Modified Sarah Scale: No Symptoms at All Modified Sarah Scale Score: 0 - Discharge Data Discharge Date: 04/03/18 Discharge Disposition: Home, Self-Care 01 Condition: Fair - Discharge Diagnosis/Problem(s) (1) Pneumonia SNOMED Code(s): 460292634 ICD Code: J18.9 - PNEUMONIA, UNSPECIFIED ORGANISM Status: Acute Priority : High Qualifiers: Laterality: bilateral Lung location: lower lobe of lung (2) COPD (chronic obstructive pulmonary disease) SNOMED Code(s): 74959182 ICD Code: J44.9 - CHRONIC OBSTRUCTIVE PULMONARY DISEASE, UNSPECIFIED Status : Acute Priority: High Qualifiers: COPD type: COPD with acute exacerbation Qualified Code(s): J44.1 - Chronic obstructive pulmonary disease with (acute) exacerbation (3) CHF, Congestive heart failure SNOMED Code(s): 68125264 ICD Code: I50.9 - HEART FAILURE, UNSPECIFIED Status: Acute Priority: High Problem Details: Acute on Chronic Systolic Congestive Heart Failure (4) Palliative care patient SNOMED Code(s): 741648889 ICD Code: Z51.5 - ENCOUNTER FOR PALLIATIVE CARE Status: Acute - Patient Summary/Data Complications: none Hospital Course: Patient had slow improvement of his status over 5 days at the hospital. Sats remain in the higher 90s with 5 liters but unable to wean off as still drops with any movement. Much better air exchange now. Still fine wheezing noted at times. Catheter returns have been noted to have gross blood, initially started when patient pulled on catheter while trying to crawl out of bed and have persisted, most likely due to coverage with Lovenox. He did have ultrasounds of his legs to rule out DVT which were negative so Lovenox was decreased to preventative dose at 30 mg daily. Was covered with IV Lasix BID and able to wean down to oral dose daily with ongoing improvement. His creatinine is chronically high and has returned back more to its normal state at 2.2. CRP remains mildly elevated at 6. WBC stable at 10. K+ at 5.1. Patient conversive , eating well and tolerating transfers better now. - Patient Instructions Diet: Usual Diet as Tolerated Activity: As Tolerated - Discharge Plan *PRESCRIPTION DRUG MONITORING PROGRAM REVIEWED*: No *COPY OF PRESCRIPTION DRUG MONITORING REPORT IN PATIENT ELLEN: No Prescriptions/Med Rec: Clindamycin HCl [Cleocin HCl] 300 mg PO QID #28 capsule Furosemide [Lasix] 40 mg PO DAILY #30 tablet Polyethylene Glycol 3350 [MiraLAX] 17 gm PO DAILY #30 packet Home Medications: Home Meds Aspirin [Halfprin] 81 mg PO DAILY 06/06/14 [History] Multivitamin [Multi-Vitamin Daily] 1 tab PO DAILY 06/06/14 [History] Albuterol Sulfate [Ventolin Hfa] 2 inh INH QID 10/15/15 [History] Albuterol/Ipratropium [DuoNeb 3.0-0.5 MG/3 ML] 3 ml NEB QIDRT #28 neb 10/22/15 [ Rx] Acetaminophen [Tylenol Extra Strength] 1,000 mg PO BID 03/29/18 [History] Bisacodyl [Dulcolax] 5 mg PO DAILY PRN 03/29/18 [History] Dextran 70/Hypromellose [Artificial Tears] 1 each OP DAILY 03/29/18 [History] Fluticasone/Salmeterol [Advair 250-50 Diskus] 1 each IH BID 03/29/18 [History] Insulin Detemir [Levemir Flextouch] 22 unit SQ DAILY 03/29/18 [History] amLODIPine Besylate [Norvasc] 5 mg PO BEDTIME 03/29/18 [History] Clindamycin HCl [Cleocin HCl] 300 mg PO QID #28 capsule 04/03/18 [Rx] Furosemide [Lasix] 40 mg PO DAILY #30 tablet 04/03/18 [Rx] Polyethylene Glycol 3350 [MiraLAX] 17 gm PO DAILY #30 packet 04/03/18 [Rx] Forms: ED Department Discharge Referrals: Frederick Lema MD [Primary Care Provider] - - Discharge Summary/Plan Comment DC Time >30 min.: No - General Info Date of Service: 04/03/18 Admission Dx/Problem (Free Text: Acute on Chronic CHF Pneumonia COPD Exacerbation Elevated D-Dimer Palliative Care patient Functional Status: Reports: Pain Controlled, Tolerating Diet. Denies: Ambulating, Urinating - Review of Systems General: Reports: Weakness. Denies: Fever HEENT: Denies: Ear Pain, Sinus Congestion, Rhinitis Pulmonary: Reports: Shortness of Breath Cardiovascular: Denies: Chest Pain, Edema Gastrointestinal: Denies: Abdominal Pain, Nausea, Vomiting Genitourinary: Reports: Hematuria, Retention Musculoskeletal: Reports: No Symptoms Skin: Reports: No Symptoms Neurological: Reports: Pre-Existing Deficit - Patient Data Vitals - Most Recent: Last Vital Signs Temp 97.4 F 04/03/18 07:58 Pulse 64 04/03/18 07:58 Resp 18 04/03/18 07:58 BP 138/55 L 04/03/18 07:58 Pulse Ox 100 04/03/18 07:58 Weight - Most Recent: 144 lb 9.6 oz I&O - Last 24 hours: Intake & Output 04/03/18 04/03/18 04/03/18 06:59 14:59 22:59 Intake Total 750 Output Total 850 Balance -100 Lab Results - Last 24 hrs: Laboratory Results - last 24 hr 04/03/18 04/03/18 Range/Units 06:59 07:43 Sodium 137 (136-145) mEq/L Potassium 5.1 H (3.5-5.0) mEq/L Chloride 102 (98-106) mEq/L Carbon Dioxide 32 (21-32) mmol/L BUN 81 H* (7-18) mg/dL Creatinine 2.2 H (0.7-1.3) mg/dL Est Cr Clr Drug Dosing 17.92 mL/min Estimated GFR (MDRD) 28 L (>=60) mL/min Glucose 90 D (75-99) mg/dL POC Glucose 87 (75-105) mg/dl Calcium 8.5 (8.4-10.1) mg/dL C-Reactive Protein 6.4 H (0.2-0.8) mg/dL Med Orders - Current: Current Medications Discontinued Medications Acetaminophen (Tylenol) 650 mg PO Q4H PRN PRN Reason: Pain (Mild 1-3)/fever Acetaminophen (Tylenol Extra Strength) 1,000 mg PO BID [facility] Last Admin: 04/03/18 07:44 Dose: 1,000 mg Albuterol/Ipratropium (Duoneb 3.0-0.5 Mg/3 Ml) Confirm Administered Dose 3 ml .ROUTE .STK-MED ONE Stop: 03/29/18 09:38 Last Admin: 03/29/18 10:11 Dose: Not Given Albuterol/Ipratropium (Duoneb 3.0-0.5 Mg/3 Ml) 3 ml NEB ONETIME ONE Stop: 03/29/18 10:10 Last Admin: 03/29/18 10:13 Dose: 3 ml Albuterol/Ipratropium (Duoneb 3.0-0.5 Mg/3 Ml) 3 ml NEB ONETIME ONE Stop: 03/29/18 10:14 Last Admin: 03/29/18 11:06 Dose: 3 ml Albuterol/Ipratropium (Duoneb 3.0-0.5 Mg/3 Ml) 3 ml NEB QIDRT [facility] Last Admin: 04/03/18 07:37 Dose: 3 ml Amlodipine Besylate (Norvasc) 5 mg PO BEDTIME [facility] Last Admin: 04/02/18 19:56 Dose: 5 mg Artificial Tears (Liquitears 1.4% Ophth Soln) 0 ml EYEBOTH DAILY [facility] Last Admin: 04/03/18 07:44 Dose: 1 drop Aspirin (Halfprin) 81 mg PO DAILY [facility] Last Admin: 04/03/18 07:44 Dose: 81 mg Bisacodyl (Dulcolax) 5 mg PO DAILY PRN PRN Reason: Constipation Last Admin: 04/01/18 19:53 Dose: 5 mg Bisacodyl (Dulcolax) 10 mg RECTAL ONETIME ONE Stop: 04/02/18 09:07 Last Admin: 04/02/18 09:56 Dose: 10 mg Enoxaparin Sodium (Lovenox) 60 mg SUBCUT BID [facility] Last Admin: 03/29/18 14:26 Dose: Not Given Enoxaparin Sodium (Lovenox) 70 mg SUBCUT DAILY [facility] Last Admin: 04/02/18 07:46 Dose: 70 mg Enoxaparin Sodium (Lovenox) 30 mg SUBCUT DAILY@1200 [facility] Last Admin: 04/02/18 11:35 Dose: Not Given Furosemide (Lasix) 40 mg IVPUSH ONETIME ONE Stop: 03/29/18 11:05 Last Admin: 03/29/18 11:09 Dose: 40 mg Furosemide (Lasix) 40 mg IVPUSH BID [facility] Last Admin: 03/30/18 08:05 Dose: 40 mg Furosemide (Lasix) 40 mg IVPUSH DAILY [facility] Last Admin: 04/02/18 07:38 Dose: 40 mg Furosemide (Lasix) 40 mg PO DAILY [facility] Last Admin: 04/03/18 07:44 Dose: 40 mg Clindamycin Phosphate 300 mg/ (Premix) 50 mls @ 100 mls/hr IV Q6H [facility] Last Admin: 04/03/18 07:37 Dose: 100 mls/hr Insulin Detemir (Levemir) 22 unit SUBCUT DAILY [facility] Last Admin: 04/03/18 07:45 Dose: 22 units Methylprednisolone Sodium Succinate (Solu-Medrol) Confirm Administered Dose 125 mg .ROUTE .STK-MED ONE Stop: 03/29/18 09:50 Last Admin: 03/29/18 10:11 Dose: Not Given Methylprednisolone Sodium Succinate (Solu-Medrol) 125 mg IVPUSH STAT [facility] Last Admin: 03/29/18 10:12 Dose: 125 mg Mometasone Furoate/Formoterol Fumar (Dulera 200-5 Mcg) 2 puff IH BIDRT [facility] Last Admin: 04/03/18 07:36 Dose: 2 puff Polyethylene Glycol (Miralax) 17 gm PO BID [facility] Last Admin: 04/03/18 07:37 Dose: 17 gm Sodium Chloride (Saline Flush) 10 ml FLUSH ASDIRECTED PRN PRN Reason: Keep Vein Open - Exam Quality Assessment: Reports: Supplemental Oxygen General: Reports: Alert, Oriented (person only) HEENT: Reports: Mucous Membr. Moist/[place] Neck: Reports: Supple Lungs: Reports: Decreased Breath Sounds Cardiovascular: Reports: Regular Rate, Regular Rhythm GI/Abdominal Exam: Normal Bowel Sounds, Soft, Non-Tender Extremities: Normal Inspection, No Pedal Edema Skin: Reports: Warm, Dry Neurological: Reports: No New Focal Deficit
== END 2018-04-03 11:45 | disposition home or self-care (01) | DRG 291 ==
LOC: CC.ED 09:55 → CC.MS 12:26
PROVIDERS: ADMIT Physician Assistant Medical; ATTEND Family Medicine
DX: I50.23 Acute on chronic systolic (congestive) heart failure (principal); J18.9 Pneumonia, unspecified organism; J69.0 Pneumonitis due to inhalation of food and vomit; E87.5 Hyperkalemia; J44.1 Chronic obstructive pulmonary disease with (acute) exacerbation; I48.92 Unspecified atrial flutter; J44.0 Chronic obstructive pulmonary disease with (acute) lower respiratory infection; Z51.5 Encounter for palliative care; Z66 Do not resuscitate; H35.30 Unspecified macular degeneration; I48.91 Unspecified atrial fibrillation; F03.90 Unspecified dementia, unspecified severity, without behavioral disturbance, psychotic disturbance, mood disturbance, and anxiety; E11.22 Type 2 diabetes mellitus with diabetic chronic kidney disease; N18.9 Chronic kidney disease, unspecified; Z98.61 Coronary angioplasty status; Z87.891 Personal history of nicotine dependence; Z79.82 Long term (current) use of aspirin; Z79.899 Other long term (current) drug therapy; Z91.013 Allergy to seafood
CPT/HCPCS: 36415; 51702; 71045; 71046; 80048; 80053; 82962; 83615; 83880; 84484; 85025; 85379; 86140; 93005; 94640; 96374; 96375; 99285; A9270-GY; G0365; J1650; J1815-GY; J1940; J2930; J3490; J7620-GY

== ENCOUNTER 2018-04-08 23:14 | Inpatient (IN) | payer MEDICARE, MEDICAID ==
[2018-04-09 00:24] LABS: CHLORIDE,CL 98 mEq/L (98-106); SODIUM,NA 136 mEq/L (136-145)
--- NOTE | 2018-04-09 00:26 | EDM.PDOC ---
ED HPI GENERAL MEDICAL PROBLEM - General Chief Complaint: Respiratory Problem Stated Complaint: SOB Time Seen by Provider: 04/08/18 23:25 Source of Information: Reports: EMS, Family, Alf Records History Limitations: Reports: No Limitations - History of Present Illness INITIAL COMMENTS - FREE TEXT/NARRATIVE: Patient presents to ER with complaints of hypoxia, shortness of breath. Staff states that his oxygen level had dropped to 84% on 5 liters and they are unable to increase it due to him being on a concentrator. He was recently admitted here for CHF, Pneumonia, and renal failure. He was sent back on Cleocin, increased lasix with sats remaining above 90% at that time. He denies any pain. Does feel short of breath and it worsens with movement. Family relates he has been stable but "not good" through the week. Family unaware of any fevers. Onset: Today, Sudden Duration: Minutes: Location: Reports: Chest Improves with: Reports: Rest Worsens with: Reports: Movement Associated Symptoms: Reports: Confusion (chronic), Cough, Shortness of Breath, Weakness. Denies: Nausea/Vomiting Treatments MASCARA MOLDER: Reports: Breathing Treatments - Related Data Allergies Allergy/AdvReac Type Severity Reaction Status Date / Time MUSHROOMS Allergy Cannot Uncoded 04/09/18 00:10 Remember Seafood Allergy Airway Uncoded 04/09/18 00:10 Tightness Home Meds: Home Meds Aspirin [Halfprin] 81 mg PO DAILY 06/06/14 [History] Multivitamin [Multi-Vitamin Daily] 1 tab PO DAILY 06/06/14 [History] Albuterol Sulfate [Ventolin Hfa] 2 inh INH QID 10/15/15 [History] Albuterol/Ipratropium [DuoNeb 3.0-0.5 MG/3 ML] 3 ml NEB QIDRT #28 neb 10/22/15 [ Rx] Acetaminophen [Tylenol Extra Strength] 1,000 mg PO BID 03/29/18 [History] Bisacodyl [Dulcolax] 5 mg PO DAILY PRN 03/29/18 [History] Dextran 70/Hypromellose [Artificial Tears] 1 each OP DAILY 03/29/18 [History] Fluticasone/Salmeterol [Advair 250-50 Diskus] 1 each IH BID 03/29/18 [History] Insulin Detemir [Levemir Flextouch] 22 unit SQ DAILY 03/29/18 [History] amLODIPine Besylate [Norvasc] 5 mg PO BEDTIME 03/29/18 [History] Clindamycin HCl [Cleocin HCl] 300 mg PO QID #28 capsule 04/03/18 [Rx] Furosemide [Lasix] 40 mg PO DAILY #30 tablet 04/03/18 [Rx] Polyethylene Glycol 3350 [MiraLAX] 17 gm PO DAILY #30 packet 04/03/18 [Rx] Past Medical History HEENT History: Reports: Macular Degeneration Cardiovascular History: Reports: Afib Respiratory History: Reports: COPD Gastrointestinal History: Reports: Cholelithiasis Neurological History: Reports: Other (See Below) Other Neuro History: DEMENTIA Endocrine/Metabolic History: Reports: Diabetes, Type II - Past Surgical History HEENT Surgical History: Reports: Cataract Surgery Cardiovascular Surgical History: Reports: Percutaneous Transluminal Angioplasty GI Surgical History: Reports: Cholecystectomy, Colonoscopy, EGD Social & Family History - Family History Family Medical History: Noncontributory ED ROS GENERAL - Review of Systems Review Of Systems: ROS reveals no pertinent complaints other than HPI. (patient only oriented to person. Talking about flamingos on the wall and such. Does deny pain. Admits to feeling short of breath.) Constitutional: Reports: Malaise, Weakness. Denies: Fever, Chills HEENT: Reports: Other (dry mouth) Respiratory: Reports: Shortness of Breath, Cough GI/Abdominal: Denies: Abdominal Pain Neurological: Reports: Confusion ED EXAM, GENERAL - Physical Exam Exam: See Below Exam Limited By: No Limitations General Appearance: Alert, WD/WN, Mild Distress Ears: Normal External Exam, Normal TMs Nose: Normal Inspection, Normal Mucosa, No Blood Throat/Mouth: Normal Inspection, Normal Oropharynx, Other (mucous membranes dry) Head: Normocephalic Neck: Normal Inspection, Supple, Non-Tender Respiratory/Chest: Respiratory Distress (mild), Decreased Breath Sounds Cardiovascular: Regular Rate, Rhythm, No Edema GI/Abdominal: Normal Bowel Sounds, Soft, Non-Tender Extremities: Normal Inspection Neurological: Alert, Oriented (person only) Course - Orders/Labs/Meds Orders: Active Orders 24 hr Category Date Time Status Chest 1V Frontal [CR] Stat Exams 04/08/18 23:37 Taken C-REACTIVE PROTEIN [CHEM] Stat Lab 04/08/18 23:35 Ordered CBC WITH AUTO DIFF [HEME] Stat Lab 04/08/18 23:35 Ordered COMPREHENSIVE METABOLIC PN,CMP [CHEM] Stat Lab 04/08/18 23:35 Ordered CREATINE KINASE,CK [CHEM] Stat Lab 04/08/18 23:35 Ordered LACTATE DEHYDROGENASE,LDH [CHEM] Stat Lab 04/08/18 23:35 Ordered MANUAL DIFFERENTIAL QA/NC [HEME] Stat Lab 04/08/18 11:50 Results PRO B-TYPE NATRIUR PEPT,BNPPRO [CHEM] Stat Lab 04/08/18 23:35 Ordered TROPONIN I [CHEM] Stat Lab 04/08/18 23:35 Ordered Labs: Laboratory Tests 04/08/18 04/08/18 Range/Units 11:50 11:50 WBC 13.0 H (5.0-10.0) 10^3/uL RBC 3.11 L (4.50-6.00) 10^6/uL Hgb 9.1 L (14.0-18.0) g/dL Hct 29.1 L (40.0-54.0) % MCV 93.6 (82.0-94.0) fL MCH 29.3 (27.0-32.0) pg MCHC 31.3 L (33.0-38.0) g/dL RDW Coeff of Connie 16.2 H (11.0-15.0) % Plt Count 380 (150-400) 10^3/uL Add Manual Diff Yes D-Dimer, Quantitative 1.56 H (0.00-0.50) - Re-Assessments/Exams Free Text/Narrative Re-Assessment/Exam: 04/09/18 00:30 Patient requiring 6 liters by mask but keeps oxygen sats in the mid 90s. Labs noted. Creatinine increased to 3.0, up from previous visit. Chest xray shows probable infiltrate RLL, venous congestion consistent with CHF. Departure - Departure Time of Disposition: 00:31 Disposition: Admitted As Inpatient 65 Condition: Poor Clinical Impression: Palliative care patient, CHF, Congestive heart failure, Renal failure (ARF), acute on chronic COPD (chronic obstructive pulmonary disease) Qualifiers: COPD type: COPD with acute exacerbation Qualified Code(s): J44.1 - Chronic obstructive pulmonary disease with (acute) exacerbation Pneumonia Qualifiers: Laterality: bilateral Lung location: lower lobe of lung - Discharge Information *PRESCRIPTION DRUG MONITORING PROGRAM REVIEWED*: No *COPY OF PRESCRIPTION DRUG MONITORING REPORT IN PATIENT ELLEN: No - Problem List & Annotations (1) Palliative care patient SNOMED Code(s): 758298476 Code(s): Z51.5 - ENCOUNTER FOR PALLIATIVE CARE Status: Acute Priority: High (2) Pneumonia SNOMED Code(s): 281959885 Code(s): J18.9 - PNEUMONIA, UNSPECIFIED ORGANISM Status: Acute Priority: High Qualifiers: Laterality: right Lung location: lower lobe of lung (3) COPD (chronic obstructive pulmonary disease) SNOMED Code(s): 48422670 Code(s): J44.9 - CHRONIC OBSTRUCTIVE PULMONARY DISEASE, UNSPECIFIED Status : Acute Priority: High Qualifiers: COPD type: COPD with acute exacerbation Qualified Code(s): J44.1 - Chronic obstructive pulmonary disease with (acute) exacerbation (4) CHF, Congestive heart failure SNOMED Code(s): 15550109 Code(s): I50.9 - HEART FAILURE, UNSPECIFIED Status: Acute Priority: High Annotation/Comment:: Acute on Chronic Systolic Congestive Heart Failure (5) Renal failure (ARF), acute on chronic SNOMED Code(s): 998505469 Code(s): N17.9 - ACUTE KIDNEY FAILURE, UNSPECIFIED; N18.9 - CHRONIC KIDNEY DISEASE, UNSPECIFIED Status: Acute - Problem List Review Problem List Initiated/Reviewed/Updated: Yes - My Orders Last 24 Hours: My Active Orders 04/08/18 11:50 MANUAL DIFFERENTIAL QA/NC [HEME] Stat 04/08/18 23:35 C-REACTIVE PROTEIN [CHEM] Stat CBC WITH AUTO DIFF [HEME] Stat COMPREHENSIVE METABOLIC PN,CMP [CHEM] Stat CREATINE KINASE,CK [CHEM] Stat LACTATE DEHYDROGENASE,LDH [CHEM] Stat PRO B-TYPE NATRIUR PEPT,BNPPRO [CHEM] Stat TROPONIN I [CHEM] Stat 04/08/18 23:37 Chest 1V Frontal [CR] Stat - Assessment/Plan Admission H&P: Please use this note as an admission H&P Last 24 Hours: My Active Orders 04/08/18 11:50 MANUAL DIFFERENTIAL QA/NC [HEME] Stat 04/08/18 23:35 C-REACTIVE PROTEIN [CHEM] Stat CBC WITH AUTO DIFF [HEME] Stat COMPREHENSIVE METABOLIC PN,CMP [CHEM] Stat CREATINE KINASE,CK [CHEM] Stat LACTATE DEHYDROGENASE,LDH [CHEM] Stat PRO B-TYPE NATRIUR PEPT,BNPPRO [CHEM] Stat TROPONIN I [CHEM] Stat 04/08/18 23:37 Chest 1V Frontal [CR] Stat Plan: Will admit inpatient. Cautious IV fluids due to increased renal insufficiency. IV Lasix for CHF. Levaquin for pneumonia. Cristalbs.
[2018-04-09] MEDS ORDERED: Azithromycin 500 MG in Sodium Chloride 0.9% 250 ML IV SCH (01:00)
[2018-04-09] MEDS ORDERED: cefTRIAXone 1 GM Vial IVPUSH SCH (01:00)
[2018-04-09] MEDS ORDERED: Bisacodyl 5 MG Tab PO PRN (01:23)
[2018-04-09] MEDS ORDERED: Sodium Chloride 0.9% 10 ML Syringe FLUSH PRN (01:23)
[2018-04-09] MEDS ORDERED: Levofloxacin/Dextrose 5%-Water 250 MG in Premix Bag 1 BAG IV SCH (01:23)
[2018-04-09] MEDS ORDERED: Acetaminophen 325 MG Tab PO PRN (01:23)
[2018-04-09] MEDS ORDERED: Sodium Chloride 0.45% 1,000 ML IV SCH (01:23)
[2018-04-09] MEDS ORDERED: Ondansetron 4 MG/2 ML SDV IV PRN (01:23)
[2018-04-09] MEDS: Furosemide 40 MG/4 ML VIAL IVPUSH SCH ×3 (02:00→19:53)
[2018-04-09] MEDS: Enoxaparin 30 MG/0.3 ML Syringe SUBCUT SCH (02:12)
[2018-04-09] MEDS: Albuterol/Ipratropium 3.0-0.5 MG/3 ML Neb Soln NEB SCH ×4 (07:33→19:54)
[2018-04-09] MEDS: Polyethylene Glycol 3350 Powder 17 GM Packet PO SCH (07:33)
[2018-04-09] MEDS: Acetaminophen 500 MG Tab PO SCH ×2 (07:33→19:53)
[2018-04-09] MEDS: Aspirin 81 MG Tab.EC PO SCH (07:34)
[2018-04-09] MEDS ORDERED: Albuterol 8 GM Inhaler INH SCH (08:00)
[2018-04-09] MEDS: Formoterol/Mometasone 200-5 MCG 8.8 GM Inhaler IH SCH ×2 (08:22→19:57)
[2018-04-09] MEDS: Polyvinyl Alcohol 1.4% Ophth Soln 15 ML Bottle EYEBOTH SCH (08:23)
[2018-04-09] MEDS: Insulin Detemir 100 Units/ML 3 ML Pen SUBCUT SCH (08:29)
[2018-04-09] MEDS ORDERED: Piperacillin/Tazobactam 3.375 GM in Sodium Chloride 0.9% 50 ML IV SCH (09:00)
[2018-04-09] MEDS: ALPRAZolam 0.25 MG Tab PO PRN ×2 (09:14→19:53)
[2018-04-09] MEDS: Piperacillin/Tazobactam 2.25 GM in Sodium Chloride 0.9% 50 ML IV SCH ×3 (10:13→21:27)
[2018-04-09] MEDS: amLODIPine 2.5 MG Tab PO SCH (21:27)
[2018-04-10] MEDS: Enoxaparin 30 MG/0.3 ML Syringe SUBCUT SCH (00:36)
[2018-04-10] MEDS: Piperacillin/Tazobactam 2.25 GM in Sodium Chloride 0.9% 50 ML IV SCH ×4 (03:30→21:33)
[2018-04-10] MEDS: amLODIPine 2.5 MG Tab PO SCH (04:48)
[2018-04-10] MEDS: Albuterol/Ipratropium 3.0-0.5 MG/3 ML Neb Soln NEB SCH ×5 (07:41→19:35)
[2018-04-10] MEDS: Aspirin 81 MG Tab.EC PO SCH (07:43)
[2018-04-10] MEDS: Acetaminophen 500 MG Tab PO SCH ×2 (07:43→19:20)
[2018-04-10] MEDS: Polyethylene Glycol 3350 Powder 17 GM Packet PO SCH (07:43)
[2018-04-10] MEDS: Furosemide 40 MG/4 ML VIAL IVPUSH SCH ×2 (07:44→19:26)
[2018-04-10] MEDS: Insulin Detemir 100 Units/ML 3 ML Pen SUBCUT SCH (07:57)
[2018-04-10] MEDS: Formoterol/Mometasone 200-5 MCG 8.8 GM Inhaler IH SCH ×2 (08:05→19:35)
[2018-04-10] MEDS: Polyvinyl Alcohol 1.4% Ophth Soln 15 ML Bottle EYEBOTH SCH (08:05)
--- NOTE | 2018-04-10 09:15 | PCM.PN ---
- General Info Date of Service: 04/10/18 Admission Dx/Problem (Free Text): RLL Pneumonia COPD Exacerbation CHF Acute on chronic CHF Palliative care patient Functional Status: Reports: Pain Controlled, Tolerating Diet - Review of Systems General: Reports: Weakness, Fatigue, Malaise. Denies: Fever HEENT: Reports: Rhinitis Pulmonary: Reports: Shortness of Breath, Cough, Sputum Cardiovascular: Reports: No Symptoms Gastrointestinal: Denies: Abdominal Pain, Nausea, Vomiting Genitourinary: Reports: Frequency, Incontinence Musculoskeletal: Reports: No Symptoms Skin: Reports: No Symptoms Neurological: Reports: Confusion - Patient Data Vitals - Most Recent: Last Vital Signs Temp 97.3 F 04/10/18 08:00 Pulse 83 04/10/18 08:00 Resp 24 H 04/10/18 08:00 BP 131/48 L 04/10/18 08:00 Pulse Ox 92 L 04/10/18 08:00 Weight - Most Recent: 151 lb 8 oz I&O - Last 24 Hours: Intake & Output 04/09/18 04/10/18 04/10/18 22:59 06:59 14:59 Output Total 25 Balance -25 Lab Results Last 24 Hours: Laboratory Results - last 24 hr 04/09/18 04/09/18 04/09/18 Range/Units 11:19 17:15 19:42 WBC (5.0-10.0) 10^3/uL RBC (4.50-6.00) 10^6/uL Hgb (14.0-18.0) g/dL Hct (40.0-54.0) % MCV (82.0-94.0) fL MCH (27.0-32.0) pg MCHC (33.0-38.0) g/dL RDW Coeff of Connie (11.0-15.0) % Plt Count (150-400) 10^3/uL Neut % (Auto) (35-85) % Lymph % (Auto) (10-55) % [place] % (Auto) (0-16) % Eos % (Auto) (0-5) % Baso % (Auto) (0-3) % Neut # (Auto) (1.80-7.00) 10^3/uL Lymph # (Auto) (1.00-4.80) 10^3/uL [place] # (Auto) (0.00-0.80) 10^3/uL Eos # (Auto) (0.00-0.45) 10^3/uL Baso # (Auto) 10^3/uL Sodium (136-145) mEq/L Potassium (3.5-5.0) mEq/L Chloride (98-106) mEq/L Carbon Dioxide (21-32) mmol/L BUN (7-18) mg/dL Creatinine (0.7-1.3) mg/dL Est Cr Clr Drug Dosing mL/min Estimated GFR (MDRD) (>=60) mL/min Glucose (75-99) mg/dL POC Glucose 135 H 84 123 H (75-105) mg/dl Calcium (8.4-10.1) mg/dL C-Reactive Protein (0.2-0.8) mg/dL 04/10/18 04/10/18 04/10/18 Range/Units 05:30 07:42 08:35 WBC 10.0 (5.0-10.0) 10^3/uL RBC 3.30 L (4.50-6.00) 10^6/uL Hgb 9.4 L (14.0-18.0) g/dL Hct 31.3 L (40.0-54.0) % MCV 94.8 H (82.0-94.0) fL MCH 28.5 (27.0-32.0) pg MCHC 30.0 L (33.0-38.0) g/dL RDW Coeff of Connie 16.2 H (11.0-15.0) % Plt Count 379 (150-400) 10^3/uL Neut % (Auto) 79.6 (35-85) % Lymph % (Auto) 7.6 L (10-55) % [place] % (Auto) 8.5 (0-16) % Eos % (Auto) 3.6 (0-5) % Baso % (Auto) 0.7 (0-3) % Neut # (Auto) 8.00 H (1.80-7.00) 10^3/uL Lymph # (Auto) 0.76 L (1.00-4.80) 10^3/uL [place] # (Auto) 0.85 H (0.00-0.80) 10^3/uL Eos # (Auto) 0.36 (0.00-0.45) 10^3/uL Baso # (Auto) 0.07 10^3/uL Sodium (136-145) mEq/L Potassium (3.5-5.0) mEq/L Chloride (98-106) mEq/L Carbon Dioxide (21-32) mmol/L BUN (7-18) mg/dL Creatinine (0.7-1.3) mg/dL Est Cr Clr Drug Dosing mL/min Estimated GFR (MDRD) (>=60) mL/min Glucose (75-99) mg/dL POC Glucose 78 83 (75-105) mg/dl Calcium (8.4-10.1) mg/dL C-Reactive Protein (0.2-0.8) mg/dL 04/10/18 Range/Units 08:35 WBC (5.0-10.0) 10^3/uL RBC (4.50-6.00) 10^6/uL Hgb (14.0-18.0) g/dL Hct (40.0-54.0) % MCV (82.0-94.0) fL MCH (27.0-32.0) pg MCHC (33.0-38.0) g/dL RDW Coeff of Connie (11.0-15.0) % Plt Count (150-400) 10^3/uL Neut % (Auto) (35-85) % Lymph % (Auto) (10-55) % [place] % (Auto) (0-16) % Eos % (Auto) (0-5) % Baso % (Auto) (0-3) % Neut # (Auto) (1.80-7.00) 10^3/uL Lymph # (Auto) (1.00-4.80) 10^3/uL [place] # (Auto) (0.00-0.80) 10^3/uL Eos # (Auto) (0.00-0.45) 10^3/uL Baso # (Auto) 10^3/uL Sodium 144 (136-145) mEq/L Potassium 4.7 (3.5-5.0) mEq/L Chloride 103 (98-106) mEq/L Carbon Dioxide 30 (21-32) mmol/L BUN 69 H (7-18) mg/dL Creatinine 2.8 H* (0.7-1.3) mg/dL Est Cr Clr Drug Dosing 14.08 mL/min Estimated GFR (MDRD) 21 L (>=60) mL/min Glucose 108 H D (75-99) mg/dL POC Glucose (75-105) mg/dl Calcium 8.6 (8.4-10.1) mg/dL C-Reactive Protein 12.7 H (0.2-0.8) mg/dL Abbe Results Last 24 Hours: Microbiology 04/09/18 08:57 Gram Stain - Final Sputum - Expectorated Med Orders - Current: Current Medications Acetaminophen (Tylenol) 650 mg PO Q4H PRN PRN Reason: Pain (Mild 1-3)/fever Acetaminophen (Tylenol Extra Strength) 1,000 mg PO BID [facility] Last Admin: 04/10/18 07:43 Dose: 1,000 mg Albuterol/Ipratropium (Duoneb 3.0-0.5 Mg/3 Ml) 3 ml NEB Q4H PRN PRN Reason: Shortness Of Breath/wheezing Albuterol/Ipratropium (Duoneb 3.0-0.5 Mg/3 Ml) 3 ml NEB QIDRT [facility] Last Admin: 04/10/18 07:41 Dose: 3 ml Alprazolam (Xanax) 0.25 mg PO Q6H PRN PRN Reason: Anxiety Last Admin: 04/09/18 19:53 Dose: 0.25 mg Amlodipine Besylate (Norvasc) 5 mg PO BEDTIME [facility] Last Admin: 04/10/18 04:48 Dose: Not Given Artificial Tears (Liquitears 1.4% Ophth Soln) 0 ml EYEBOTH DAILY [facility] Last Admin: 04/10/18 08:05 Dose: 1 drop Aspirin (Halfprin) 81 mg PO DAILY [facility] Last Admin: 04/10/18 07:43 Dose: 81 mg Bisacodyl (Dulcolax) 5 mg PO DAILY PRN PRN Reason: Constipation Last Admin: 04/09/18 07:33 Dose: 5 mg Enoxaparin Sodium (Lovenox) 30 mg SUBCUT Q24H [facility] Last Admin: 04/10/18 00:36 Dose: 30 mg Furosemide (Lasix) 40 mg IVPUSH BID [facility] Last Admin: 04/10/18 07:44 Dose: 40 mg Piperacillin Sod/Tazobactam (Sod 2.25 gm/ Sodium Chloride) 50 mls @ 100 mls/hr IV Q6H [facility] Last Admin: 04/10/18 03:30 Dose: 100 mls/hr Insulin Detemir (Levemir) 0 unit SUBCUT DAILY [facility] Last Admin: 04/10/18 07:57 Dose: Not Given Mometasone Furoate/Formoterol Fumar (Dulera 200-5 Mcg) 0 puff IH BID [facility] Last Admin: 04/10/18 08:05 Dose: 2 puff Ondansetron HCl (Zofran) 4 mg IV Q4H PRN PRN Reason: Nausea/Vomiting Polyethylene Glycol (Miralax) 17 gm PO DAILY [facility] Last Admin: 04/10/18 07:43 Dose: 17 gm Sodium Chloride (Saline Flush) 10 ml FLUSH ASDIRECTED PRN PRN Reason: Keep Vein Open Vancomycin HCl (Pharmacy To Dose - Vancomycin) 1 dose .XX ASDIRECTED [facility] Discontinued Medications Albuterol (Ventolin Hfa) 0 gm INH QID [facility] Last Admin: 04/09/18 08:28 Dose: Not Given Ceftriaxone Sodium (Rocephin) 1 gm IVPUSH Q24H [facility] Last Admin: 04/09/18 02:05 Dose: 1 gm Levofloxacin/Dextrose 250 mg/ (Premix) 50 mls @ 50 mls/hr IV Q24H [facility] Last Admin: 04/09/18 01:36 Dose: Not Given Sodium Chloride (Sodium Chloride 0.45%) 1,000 mls @ 75 mls/hr IV ASDIRECTED [facility] Last Admin: 04/09/18 02:08 Dose: 75 mls/hr Azithromycin 500 mg/ Sodium (Chloride) 250 mls @ 250 mls/hr IV Q24H [facility] Last Admin: 04/09/18 02:15 Dose: 250 mls/hr Piperacillin Sod/Tazobactam (Sod 3.375 gm/ Sodium Chloride) 50 mls @ 100 mls/ hr IV Q6H [facility] Last Admin: 04/09/18 09:34 Dose: Not Given - Exam General: Alert, Oriented (person only) HEENT: Mucous Membr. Moist/[place] Neck: Supple Lungs: Decreased Breath Sounds, Rales (RLL) Cardiovascular: Regular Rate, Regular Rhythm GI/Abdominal Exam: Normal Bowel Sounds, Soft, Non-Tender Extremities: Normal Inspection, No Pedal Edema Skin: Warm, Dry Neurological: No New Focal Deficit - Problem List & Annotations (1) Palliative care patient SNOMED Code(s): 261891046 Code(s): Z51.5 - ENCOUNTER FOR PALLIATIVE CARE Status: Acute Priority: High Current Visit: Yes (2) Pneumonia SNOMED Code(s): 040386516 Code(s): J18.9 - PNEUMONIA, UNSPECIFIED ORGANISM Status: Acute Priority: High Current Visit: Yes Qualifiers: Laterality: right Lung location: lower lobe of lung (3) COPD (chronic obstructive pulmonary disease) SNOMED Code(s): 49597869 Code(s): J44.9 - CHRONIC OBSTRUCTIVE PULMONARY DISEASE, UNSPECIFIED Status : Acute Priority: High Current Visit: Yes Qualifiers: COPD type: COPD with acute exacerbation Qualified Code(s): J44.1 - Chronic obstructive pulmonary disease with (acute) exacerbation (4) CHF, Congestive heart failure SNOMED Code(s): 03657733 Code(s): I50.9 - HEART FAILURE, UNSPECIFIED Status: Acute Priority: High Current Visit: Yes Annotation/Comment:: Acute on Chronic Systolic Congestive Heart Failure (5) Renal failure (ARF), acute on chronic SNOMED Code(s): 665117747 Code(s): N17.9 - ACUTE KIDNEY FAILURE, UNSPECIFIED; N18.9 - CHRONIC KIDNEY DISEASE, UNSPECIFIED Status: Acute Priority: High Current Visit: Yes - Problem List Review Problem List Initiated/Reviewed/Updated: Yes - My Orders Last 24 Hours: My Active Orders 04/09/18 08:57 CULTURE SPUTUM + SMEAR [RM] Routine 04/09/18 09:04 ALPRAZolam [Xanax] 0.25 mg PO Q6H PRN 04/09/18 09:30 Piperacillin/Tazobactam [Zosyn] 2.25 gm Sodium Chloride 0.9% [Normal Saline] 50 ml IV Q6H 04/09/18 20:00 amLODIPine [Norvasc] 5 mg PO BEDTIME 04/10/18 09:15 Vancomycin Pharmacy to Dose [Pharmacy to Dose - Vancomycin] 1 dose .XX ASDIRECTED - Assessment Assessment:: RLL Pneumonia COPD Exacerbation Acute on Chronic systolic heart failure Acute on chronic kidney failure Palliative Care Patient - Plan Plan:: Marco is a palliative care patient admitted from [facility] with increased shortness of breath and hypoxia. Work up in the ER indicated worsening renal failure. Chest xray shows venous congestion, probable RLL pneumonia. He has been alert since admission, oriented to person but conversive and cooperative. Activity of any kind does increase hypoxia. Has frequent cough, productive of thick sputum. Initial sputum culture is positive. Awaiting ID. Lab does show WBC of 10 today, CRP 12.7. Creatinine slightly improved to 2.8. Blood pressure is low at 101/39. Will hold Norvasc at this time. Start Vancomycin in addition to the Zosyn. Oxygen to maintain sats. Repeat labs in am. Social service consult with family tomorrow to consider hospice.
[2018-04-10] MEDS: Albuterol/Ipratropium 3.0-0.5 MG/3 ML Neb Soln NEB PRN ×2 (10:25→17:55)
[2018-04-10] MEDS: ALPRAZolam 0.25 MG Tab PO PRN ×2 (10:41→16:43)
[2018-04-10] MEDS: Oxyquinoline/Emollient 0.3% Oint 1 OZ Canister TOP PRN (15:00)
[2018-04-10] MEDS ORDERED: Polyethylene Glycol 3350 Powder 17 GM Packet PO PRN (16:22)
[2018-04-11] MEDS: Oxyquinoline/Emollient 0.3% Oint 1 OZ Canister TOP PRN ×3 (00:21→21:34)
[2018-04-11] MEDS: ALPRAZolam 0.25 MG Tab PO PRN ×3 (00:22→19:32)
[2018-04-11] MEDS: Piperacillin/Tazobactam 2.25 GM in Sodium Chloride 0.9% 50 ML IV SCH ×4 (03:38→21:30)
[2018-04-11] MEDS: Acetaminophen 500 MG Tab PO SCH ×2 (07:31→19:30)
[2018-04-11] MEDS: Aspirin 81 MG Tab.EC PO SCH (07:32)
[2018-04-11] MEDS: Enoxaparin 30 MG/0.3 ML Syringe SUBCUT SCH (07:33)
[2018-04-11] MEDS: Furosemide 40 MG/4 ML VIAL IVPUSH SCH ×2 (07:33→16:02)
[2018-04-11] MEDS: Insulin Detemir 100 Units/ML 3 ML Pen SUBCUT SCH (07:34)
[2018-04-11] MEDS: Formoterol/Mometasone 200-5 MCG 8.8 GM Inhaler IH SCH ×2 (07:34→19:35)
[2018-04-11] MEDS: Polyvinyl Alcohol 1.4% Ophth Soln 15 ML Bottle EYEBOTH SCH (07:36)
[2018-04-11] MEDS: Albuterol/Ipratropium 3.0-0.5 MG/3 ML Neb Soln NEB SCH ×4 (07:36→19:32)
--- NOTE | 2018-04-11 09:42 | PCM.PN ---
- General Info Date of Service: 04/11/18 Admission Dx/Problem (Free Text): RLL Pneumonia COPD Exacerbation CHF Acute on chronic CHF Palliative care patient Functional Status: Reports: Pain Controlled, Tolerating Diet, Urinating. Denies : Ambulating - Review of Systems General: Reports: Weakness, Fatigue, Malaise. Denies: Fever HEENT: Reports: Rhinitis Pulmonary: Reports: Shortness of Breath, Cough, Sputum Cardiovascular: Denies: Chest Pain, Edema, Lightheadedness Gastrointestinal: Denies: Abdominal Pain, Nausea Genitourinary: Reports: Frequency, Incontinence Neurological: Reports: Confusion - Patient Data Vitals - Most Recent: Last Vital Signs Temp 96 F 04/11/18 08:00 Pulse 64 04/11/18 08:00 Resp 24 H 04/11/18 08:00 BP 134/50 L 04/11/18 08:00 Pulse Ox 91 L 04/11/18 08:00 Weight - Most Recent: 149 lb 9.6 oz Lab Results Last 24 Hours: Laboratory Results - last 24 hr 04/10/18 04/10/18 04/10/18 Range/Units 11:26 17:23 19:48 WBC (5.0-10.0) 10^3/uL RBC (4.50-6.00) 10^6/uL Hgb (14.0-18.0) g/dL Hct (40.0-54.0) % MCV (82.0-94.0) fL MCH (27.0-32.0) pg MCHC (33.0-38.0) g/dL RDW Coeff of Connie (11.0-15.0) % Plt Count (150-400) 10^3/uL Neut % (Auto) (35-85) % Lymph % (Auto) (10-55) % [place] % (Auto) (0-16) % Eos % (Auto) (0-5) % Baso % (Auto) (0-3) % Neut # (Auto) (1.80-7.00) 10^3/uL Lymph # (Auto) (1.00-4.80) 10^3/uL [place] # (Auto) (0.00-0.80) 10^3/uL Eos # (Auto) (0.00-0.45) 10^3/uL Baso # (Auto) 10^3/uL Sodium (136-145) mEq/L Potassium (3.5-5.0) mEq/L Chloride (98-106) mEq/L Carbon Dioxide (21-32) mmol/L BUN (7-18) mg/dL Creatinine (0.7-1.3) mg/dL Est Cr Clr Drug Dosing mL/min Estimated GFR (MDRD) (>=60) mL/min Glucose (75-99) mg/dL POC Glucose 198 H 154 H 233 H (75-105) mg/dl Calcium (8.4-10.1) mg/dL C-Reactive Protein (0.2-0.8) mg/dL 04/11/18 04/11/18 04/11/18 Range/Units 07:04 07:04 07:19 WBC 9.0 (5.0-10.0) 10^3/uL RBC 2.96 L (4.50-6.00) 10^6/uL Hgb 8.8 L (14.0-18.0) g/dL Hct 28.4 L (40.0-54.0) % MCV 95.9 H (82.0-94.0) fL MCH 29.7 (27.0-32.0) pg MCHC 31.0 L (33.0-38.0) g/dL RDW Coeff of Connie 16.2 H (11.0-15.0) % Plt Count 369 (150-400) 10^3/uL Neut % (Auto) 81.0 (35-85) % Lymph % (Auto) 5.8 L (10-55) % [place] % (Auto) 8.9 (0-16) % Eos % (Auto) 3.7 (0-5) % Baso % (Auto) 0.6 (0-3) % Neut # (Auto) 7.29 H (1.80-7.00) 10^3/uL Lymph # (Auto) 0.52 L (1.00-4.80) 10^3/uL [place] # (Auto) 0.80 (0.00-0.80) 10^3/uL Eos # (Auto) 0.33 (0.00-0.45) 10^3/uL Baso # (Auto) 0.05 10^3/uL Sodium 146 H (136-145) mEq/L Potassium 4.1 (3.5-5.0) mEq/L Chloride 105 (98-106) mEq/L Carbon Dioxide 34 H (21-32) mmol/L BUN 62 H (7-18) mg/dL Creatinine 2.7 H* (0.7-1.3) mg/dL Est Cr Clr Drug Dosing 14.60 mL/min Estimated GFR (MDRD) 22 L (>=60) mL/min Glucose 112 H (75-99) mg/dL POC Glucose 110 H (75-105) mg/dl Calcium 8.6 (8.4-10.1) mg/dL C-Reactive Protein 8.9 H (0.2-0.8) mg/dL Abbe Results Last 24 Hours: Microbiology 04/09/18 08:57 Gram Stain - Final Sputum - Expectorated Sputum Culture - Preliminary Gram Positive Rods Med Orders - Current: Current Medications Acetaminophen (Tylenol) 650 mg PO Q4H PRN PRN Reason: Pain (Mild 1-3)/fever Acetaminophen (Tylenol Extra Strength) 1,000 mg PO BID [facility] Last Admin: 04/11/18 07:31 Dose: 1,000 mg Albuterol/Ipratropium (Duoneb 3.0-0.5 Mg/3 Ml) 3 ml NEB Q4H PRN PRN Reason: Shortness Of Breath/wheezing Last Admin: 04/10/18 17:55 Dose: 3 ml Albuterol/Ipratropium (Duoneb 3.0-0.5 Mg/3 Ml) 3 ml NEB QIDRT [facility] Last Admin: 04/11/18 07:36 Dose: 3 ml Alprazolam (Xanax) 0.25 mg PO Q6H PRN PRN Reason: Anxiety Last Admin: 04/11/18 07:33 Dose: 0.25 mg Amlodipine Besylate (Norvasc) 5 mg PO BEDTIME [facility] Last Admin: 04/10/18 04:48 Dose: Not Given Artificial Tears (Liquitears 1.4% Ophth Soln) 0 ml EYEBOTH DAILY [facility] Last Admin: 04/11/18 07:36 Dose: 1 drop Aspirin (Halfprin) 81 mg PO DAILY [facility] Last Admin: 04/11/18 07:32 Dose: 81 mg Bisacodyl (Dulcolax) 5 mg PO DAILY PRN PRN Reason: Constipation Last Admin: 04/09/18 07:33 Dose: 5 mg Enoxaparin Sodium (Lovenox) 30 mg SUBCUT Q24H [facility] Last Admin: 04/11/18 07:33 Dose: 30 mg Furosemide (Lasix) 40 mg IVPUSH BID [facility] Last Admin: 04/11/18 07:33 Dose: 40 mg Piperacillin Sod/Tazobactam (Sod 2.25 gm/ Sodium Chloride) 50 mls @ 100 mls/hr IV Q6H [facility] Last Admin: 04/11/18 03:38 Dose: 100 mls/hr Vancomycin HCl 1 gm/ Sodium (Chloride) 250 mls @ 166.667 mls/hr IV Q48H [facility] Last Admin: 04/10/18 10:28 Dose: 166.667 mls/hr Insulin Detemir (Levemir) 0 unit SUBCUT DAILY [facility] Last Admin: 04/11/18 07:34 Dose: 22 units Mometasone Furoate/Formoterol Fumar (Dulera 200-5 Mcg) 0 puff IH BID [facility] Last Admin: 04/11/18 07:34 Dose: 2 puff Ondansetron HCl (Zofran) 4 mg IV Q4H PRN PRN Reason: Nausea/Vomiting Oxyquinoline Sulfate (Bag [place] Oint) 0 oz TOP ASDIRECTED PRN PRN Reason: skin breakdown Last Admin: 04/11/18 07:35 Dose: 1 applic Polyethylene Glycol (Miralax) 17 gm PO DAILY PRN PRN Reason: Constipation Sodium Chloride (Saline Flush) 10 ml FLUSH ASDIRECTED PRN PRN Reason: Keep Vein Open Vancomycin HCl (Pharmacy To Dose - Vancomycin) 1 dose .XX ASDIRECTED [facility] Discontinued Medications Albuterol (Ventolin Hfa) 0 gm INH QID [facility] Last Admin: 04/09/18 08:28 Dose: Not Given Ceftriaxone Sodium (Rocephin) 1 gm IVPUSH Q24H [facility] Last Admin: 04/09/18 02:05 Dose: 1 gm Enoxaparin Sodium (Lovenox) 30 mg SUBCUT Q24H [facility] Last Admin: 04/10/18 00:36 Dose: 30 mg Levofloxacin/Dextrose 250 mg/ (Premix) 50 mls @ 50 mls/hr IV Q24H [facility] Last Admin: 04/09/18 01:36 Dose: Not Given Sodium Chloride (Sodium Chloride 0.45%) 1,000 mls @ 75 mls/hr IV ASDIRECTED [facility] Last Admin: 04/09/18 02:08 Dose: 75 mls/hr Azithromycin 500 mg/ Sodium (Chloride) 250 mls @ 250 mls/hr IV Q24H [facility] Last Admin: 04/09/18 02:15 Dose: 250 mls/hr Piperacillin Sod/Tazobactam (Sod 3.375 gm/ Sodium Chloride) 50 mls @ 100 mls/ hr IV Q6H [facility] Last Admin: 04/09/18 09:34 Dose: Not Given Piperacillin Sod/Tazobactam Sod (Zosyn) Confirm Administered Dose 3.375 gm .ROUTE .STK-MED ONE Stop: 04/10/18 21:32 Last Admin: 04/10/18 21:32 Dose: Not Given Piperacillin Sod/Tazobactam Sod (Zosyn) Confirm Administered Dose 3.375 gm .ROUTE .STK-MED ONE Stop: 04/11/18 02:51 Last Admin: 04/11/18 06:28 Dose: Not Given Polyethylene Glycol (Miralax) 17 gm PO DAILY [facility] Last Admin: 04/10/18 07:43 Dose: 17 gm - Exam Quality Assessment: Supplemental Oxygen General: Alert, Oriented (person only, 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 Moist/[place] Neck: Supple Lungs: Decreased Breath Sounds, Crackles, Wheezing Cardiovascular: Regular Rate, Regular Rhythm GI/Abdominal Exam: Normal Bowel Sounds, Soft, Non-Tender Extremities: Normal Inspection, No Pedal Edema Skin: Warm, Dry - Problem List & Annotations (1) Palliative care patient SNOMED Code(s): 057003177 Code(s): Z51.5 - ENCOUNTER FOR PALLIATIVE CARE Status: Acute Priority: High Current Visit: Yes (2) Pneumonia SNOMED Code(s): 769316869 Code(s): J18.9 - PNEUMONIA, UNSPECIFIED ORGANISM Status: Acute Priority: High Current Visit: Yes Qualifiers: Laterality: right Lung location: lower lobe of lung (3) COPD (chronic obstructive pulmonary disease) SNOMED Code(s): 66701194 Code(s): J44.9 - CHRONIC OBSTRUCTIVE PULMONARY DISEASE, UNSPECIFIED Status : Acute Priority: High Current Visit: Yes Qualifiers: COPD type: COPD with acute exacerbation Qualified Code(s): J44.1 - Chronic obstructive pulmonary disease with (acute) exacerbation (4) CHF, Congestive heart failure SNOMED Code(s): 59800347 Code(s): I50.9 - HEART FAILURE, UNSPECIFIED Status: Acute Priority: High Current Visit: Yes Annotation/Comment:: Acute on Chronic Systolic Congestive Heart Failure (5) Renal failure (ARF), acute on chronic SNOMED Code(s): 159829339 Code(s): N17.9 - ACUTE KIDNEY FAILURE, UNSPECIFIED; N18.9 - CHRONIC KIDNEY DISEASE, UNSPECIFIED Status: Acute Priority: High Current Visit: Yes - Problem List Review Problem List Initiated/Reviewed/Updated: Yes - My Orders Last 24 Hours: My Active Orders 04/10/18 09:15 Vancomycin Pharmacy to Dose [Pharmacy to Dose - Vancomycin] 1 dose .XX ASDIRECTED 04/10/18 09:30 Air Mattress [Pressure Reduction Mattress] [OM.PC] Routine 04/10/18 10:00 Vancomycin 1 gm Sodium Chloride 0.9% [Normal Saline] 250 ml IV Q48H 04/10/18 14:57 Oxyquinoline/Emollient [Bag [place] Oint] See Dose Instructions TOP ASDIRECTED PRN 04/10/18 16:22 Polyethylene Glycol 3350 [MiraLAX] 17 gm PO DAILY PRN 04/11/18 08:00 Enoxaparin [Lovenox] 30 mg SUBCUT Q24H 04/14/18 09:30 VANCOMYCIN TROUGH [CHEM] Routine - Assessment Assessment:: RLL Pneumonia COPD Exacerbation Acute on Chronic systolic heart failure Acute on chronic kidney failure Palliative Care Patient - Plan Plan:: Marco is a palliative care patient admitted from [facility] with increased shortness of breath and hypoxia. Work up in the ER indicated worsening renal failure. Chest xray shows venous congestion, probable RLL pneumonia. He has been alert since admission, oriented to person but conversive and cooperative. Activity of any kind does increase hypoxia. Has frequent cough, productive of thick sputum. Initial sputum culture is positive. Awaiting ID. Lab does show WBC of 10 today, CRP 12.7. Creatinine slightly improved to 2.8. Blood pressure is low at 101/39. Will hold Norvasc at this time. Start Vancomycin in addition to the Zosyn. Oxygen to maintain sats. Repeat labs in am. Social service consult with family tomorrow to consider hospice. 04-11-2018 Patient conversive, disoriented to place and time. Does admit to feeling short of breath. Does have pursed lip breathing after any movements, eating, etc. He does drop his sats in to the low 80s with eating. Still has moist productive cough with thick phlegm production at times. Afebrile. HLabs today show stable WBC of 9.0. Hemoglobin 8.8. CRP 8.9. Creatinine slowly improving , today 2.7. Sputum was positive for gram positive cocci, sent to [facility] for identification. Will continue Vancomycin and Zosyn. Meeting with family today to discuss hospice when he returns back to the [facility]. Continue other current cares.
[2018-04-12] MEDS: ALPRAZolam 0.25 MG Tab PO PRN (01:19)
[2018-04-12] MEDS: Piperacillin/Tazobactam 2.25 GM in Sodium Chloride 0.9% 50 ML IV SCH ×2 (03:21→09:32)
[2018-04-12] MEDS: Aspirin 81 MG Tab.EC PO SCH (07:52)
[2018-04-12] MEDS: Acetaminophen 500 MG Tab PO SCH (07:53)
[2018-04-12] MEDS: Furosemide 40 MG/4 ML VIAL IVPUSH SCH (07:54)
[2018-04-12] MEDS: Enoxaparin 30 MG/0.3 ML Syringe SUBCUT SCH (07:54)
[2018-04-12] MEDS: Albuterol/Ipratropium 3.0-0.5 MG/3 ML Neb Soln NEB SCH (07:54)
[2018-04-12] MEDS: Polyvinyl Alcohol 1.4% Ophth Soln 15 ML Bottle EYEBOTH SCH (07:59)
[2018-04-12] MEDS: Insulin Detemir 100 Units/ML 3 ML Pen SUBCUT SCH (07:59)
[2018-04-12] MEDS: Formoterol/Mometasone 200-5 MCG 8.8 GM Inhaler IH SCH (07:59)
[2018-04-12 08:00] VITALS: BP 131/55
--- NOTE | 2018-04-15 20:17 | PCM.DCSUM1 ---
Discharge Summary - Hospital Course Free Text/Narrative:: Patient presented to ED from the [facility] with hypoxia. Patient had recently been admitted here with Acute CHF, Renal insufficiency, Pneumonia. Was sent back to the home on Cleocin, increased Lasix and oxygen at 5 liters. Prior to readmission, patient's sats had again dropped below 90% with any movement while on 5 liters. Patient still had ongoing cough. Chest xray showed RLL pneumonia. Creatinine had increased to 3.0 from his usual at 2.3. Admitted with IV fluids, Lasix, Rocephin and Zithromax. Ongoing nebs. Diagnosis: Stroke: No Modified Murray Scale: No Symptoms at All Modified Murray Scale Score: 0 - Discharge Data Discharge Date: 04/12/18 Discharge Disposition: DC/Tfer W/I Hosp To Swing 61 Condition: Poor - Discharge Diagnosis/Problem(s) (1) Palliative care patient SNOMED Code(s): 051957913 ICD Code: Z51.5 - ENCOUNTER FOR PALLIATIVE CARE Status: Acute Priority: High (2) Pneumonia SNOMED Code(s): 004344749 ICD Code: J18.9 - PNEUMONIA, UNSPECIFIED ORGANISM Status: Acute Priority : High Qualifiers: Laterality: right Lung location: lower lobe of lung (3) COPD (chronic obstructive pulmonary disease) SNOMED Code(s): 83593452 ICD Code: J44.9 - CHRONIC OBSTRUCTIVE PULMONARY DISEASE, UNSPECIFIED Status : Acute Priority: High Qualifiers: COPD type: COPD with acute exacerbation Qualified Code(s): J44.1 - Chronic obstructive pulmonary disease with (acute) exacerbation (4) CHF, Congestive heart failure SNOMED Code(s): 51058252 ICD Code: I50.9 - HEART FAILURE, UNSPECIFIED Status: Acute Priority: High Problem Details: Acute on Chronic Systolic Congestive Heart Failure (5) Renal failure (ARF), acute on chronic SNOMED Code(s): 033222384 ICD Code: N17.9 - ACUTE KIDNEY FAILURE, UNSPECIFIED; N18.9 - CHRONIC KIDNEY DISEASE, UNSPECIFIED Status: Acute Priority: High - Patient Summary/Data Complications: none Hospital Course: Patient has had minimal improvement thus far. Continue to have ongoing cough with thick sputum production. Is weak. Requires oxygen per mask at 6 liters to keep sats greater than 90%. Labs have improved. WBC now normal at 9. Creatinine somewhat improved to 2.7. Sputum difficult to identify and was sent out to [facility]. Awaiting identification and sensitivities. Antibiotics were switched to Vancomycin and Zosyn when appeared sputum initially noted to have gram positive rods. Family meeting was held during admission in regards to status and questions regarding hospice. At this point, still actively treating for pneumonia so will wait to determine how he responds to treatment. [facility] so will transfer to swing bed for ongoing IV antibiotic. - Discharge Plan *PRESCRIPTION DRUG MONITORING PROGRAM REVIEWED*: No *COPY OF PRESCRIPTION DRUG MONITORING REPORT IN PATIENT ELLEN: No Home Medications: Home Meds Aspirin [Halfprin] 81 mg PO DAILY 06/06/14 [History] Multivitamin [Multi-Vitamin Daily] 1 tab PO DAILY 06/06/14 [History] Albuterol Sulfate [Ventolin Hfa] 2 inh INH QID 10/15/15 [History] Albuterol/Ipratropium [DuoNeb 3.0-0.5 MG/3 ML] 3 ml NEB QIDRT #28 neb 10/22/15 [ Rx] Acetaminophen [Tylenol Extra Strength] 1,000 mg PO BID 03/29/18 [History] Bisacodyl [Dulcolax] 5 mg PO DAILY PRN 03/29/18 [History] Dextran 70/Hypromellose [Artificial Tears] 1 each OP DAILY 03/29/18 [History] Fluticasone/Salmeterol [Advair 250-50 Diskus] 1 each IH BID 03/29/18 [History] Insulin Detemir [Levemir Flextouch] 22 unit SQ DAILY 03/29/18 [History] amLODIPine Besylate [Norvasc] 5 mg PO BEDTIME 03/29/18 [History] Clindamycin HCl [Cleocin HCl] 300 mg PO QID #28 capsule 04/03/18 [Rx] Furosemide [Lasix] 40 mg PO DAILY #30 tablet 04/03/18 [Rx] Polyethylene Glycol 3350 [MiraLAX] 17 gm PO DAILY #30 packet 04/03/18 [Rx] Forms: ED Department Discharge Referrals: Frederick Lema MD [Primary Care Provider] - - Discharge Summary/Plan Comment DC Time >30 min.: No Discharge Summary/Plan Comment: Transfer to swing bed. Will continue with Vancomycin and Zosyn and see he progresses. - General Info Date of Service: 04/12/18 Admission Dx/Problem (Free Text: RLL Pneumonia COPD Exacerbation CHF Acute on chronic CHF Palliative care patient Functional Status: Reports: Tolerating Diet. Denies: Ambulating - Review of Systems General: Reports: Weakness, Fatigue. Denies: Fever Pulmonary: Reports: Shortness of Breath, Cough, Sputum Cardiovascular: Denies: Edema Gastrointestinal: Denies: Constipation, Diarrhea Genitourinary: Reports: Incontinence Neurological: Reports: Weakness Psychiatric: Reports: Confusion - Patient Data Vitals - Most Recent: Last Vital Signs Temp 97.6 F 04/12/18 08:00 Pulse 65 04/12/18 08:00 Resp 20 04/12/18 08:00 BP 131/55 L 04/12/18 08:00 Pulse Ox 99 04/12/18 08:00 Weight - Most Recent: 149 lb 9.6 oz Med Orders - Current: Current Medications Discontinued Medications Acetaminophen (Tylenol) 650 mg PO Q4H PRN PRN Reason: Pain (Mild 1-3)/fever Acetaminophen (Tylenol Extra Strength) 1,000 mg PO BID [facility] Last Admin: 04/12/18 07:53 Dose: 1,000 mg Albuterol (Ventolin Hfa) 0 gm INH QID [facility] Last Admin: 04/09/18 08:28 Dose: Not Given Albuterol/Ipratropium (Duoneb 3.0-0.5 Mg/3 Ml) 3 ml NEB Q4H PRN PRN Reason: Shortness Of Breath/wheezing Last Admin: 04/10/18 17:55 Dose: 3 ml Albuterol/Ipratropium (Duoneb 3.0-0.5 Mg/3 Ml) 3 ml NEB QIDRT [facility] Last Admin: 04/12/18 07:54 Dose: 3 ml Alprazolam (Xanax) 0.25 mg PO Q6H PRN PRN Reason: Anxiety Last Admin: 04/12/18 01:19 Dose: 0.25 mg Amlodipine Besylate (Norvasc) 5 mg PO BEDTIME [facility] Last Admin: 04/10/18 04:48 Dose: Not Given Artificial Tears (Liquitears 1.4% Ophth Soln) 0 ml EYEBOTH DAILY [facility] Last Admin: 04/12/18 07:59 Dose: 1 drop Aspirin (Halfprin) 81 mg PO DAILY [facility] Last Admin: 04/12/18 07:52 Dose: 81 mg Bisacodyl (Dulcolax) 5 mg PO DAILY PRN PRN Reason: Constipation Last Admin: 04/09/18 07:33 Dose: 5 mg Ceftriaxone Sodium (Rocephin) 1 gm IVPUSH Q24H [facility] Last Admin: 04/09/18 02:05 Dose: 1 gm Enoxaparin Sodium (Lovenox) 30 mg SUBCUT Q24H [facility] Last Admin: 04/10/18 00:36 Dose: 30 mg Enoxaparin Sodium (Lovenox) 30 mg SUBCUT Q24H [facility] Last Admin: 04/12/18 07:54 Dose: 30 mg Furosemide (Lasix) 40 mg IVPUSH BID [facility] Last Admin: 04/11/18 07:33 Dose: 40 mg Furosemide (Lasix) 40 mg IVPUSH 0800,1600 [facility] Last Admin: 04/12/18 07:54 Dose: 40 mg Levofloxacin/Dextrose 250 mg/ (Premix) 50 mls @ 50 mls/hr IV Q24H [facility] Last Admin: 04/09/18 01:36 Dose: Not Given Sodium Chloride (Sodium Chloride 0.45%) 1,000 mls @ 75 mls/hr IV ASDIRECTED [facility] Last Admin: 04/09/18 02:08 Dose: 75 mls/hr Azithromycin 500 mg/ Sodium (Chloride) 250 mls @ 250 mls/hr IV Q24H [facility] Last Admin: 04/09/18 02:15 Dose: 250 mls/hr Piperacillin Sod/Tazobactam (Sod 3.375 gm/ Sodium Chloride) 50 mls @ 100 mls/ hr IV Q6H [facility] Last Admin: 04/09/18 09:34 Dose: Not Given Piperacillin Sod/Tazobactam (Sod 2.25 gm/ Sodium Chloride) 50 mls @ 100 mls/hr IV Q6H [facility] Last Admin: 04/12/18 09:32 Dose: 100 mls/hr Vancomycin HCl 1 gm/ Sodium (Chloride) 250 mls @ 166.667 mls/hr IV Q48H [facility] Last Admin: 04/10/18 10:28 Dose: 166.667 mls/hr Insulin Detemir (Levemir) 0 unit SUBCUT DAILY [facility] Last Admin: 04/12/18 07:59 Dose: 22 units Mometasone Furoate/Formoterol Fumar (Dulera 200-5 Mcg) 0 puff IH BID [facility] Last Admin: 04/12/18 07:59 Dose: 2 puff Ondansetron HCl (Zofran) 4 mg IV Q4H PRN PRN Reason: Nausea/Vomiting Oxyquinoline Sulfate (Bag [place] Oint) 0 oz TOP ASDIRECTED PRN PRN Reason: skin breakdown Last Admin: 04/11/18 21:34 Dose: 1 applic Piperacillin Sod/Tazobactam Sod (Zosyn) Confirm Administered Dose 3.375 gm .ROUTE .STK-MED ONE Stop: 04/10/18 21:32 Last Admin: 04/10/18 21:32 Dose: Not Given Piperacillin Sod/Tazobactam Sod (Zosyn) Confirm Administered Dose 3.375 gm .ROUTE .STK-MED ONE Stop: 04/11/18 02:51 Last Admin: 04/11/18 06:28 Dose: Not Given Polyethylene Glycol (Miralax) 17 gm PO DAILY [facility] Last Admin: 04/10/18 07:43 Dose: 17 gm Polyethylene Glycol (Miralax) 17 gm PO DAILY PRN PRN Reason: Constipation Sodium Chloride (Saline Flush) 10 ml FLUSH ASDIRECTED PRN PRN Reason: Keep Vein Open Vancomycin HCl (Pharmacy To Dose - Vancomycin) 1 dose .XX ASDIRECTED [facility] - Exam Quality Assessment: Reports: Supplemental Oxygen General: Reports: Alert, Oriented (person only) HEENT: Reports: Mucous Membr. Moist/[place] Neck: Reports: Supple Lungs: Reports: Decreased Breath Sounds, Crackles Cardiovascular: Reports: Regular Rate, Regular Rhythm GI/Abdominal Exam: Normal Bowel Sounds, Soft, Non-Tender, Distended Extremities: Normal Inspection, No Pedal Edema Skin: Reports: Warm, Dry Neurological: Reports: No New Focal Deficit
== END 2018-04-12 09:36 | disposition swing bed (61) | DRG 682 ==
LOC: CC.ED 23:14 → CC.MS 04-09 00:34 → UNDOADMIN 04-09 01:00
PROVIDERS: ADMIT Physician Assistant Medical; ATTEND Family Medicine
DX: N17.9 Acute kidney failure, unspecified (principal); I50.23 Acute on chronic systolic (congestive) heart failure; J18.9 Pneumonia, unspecified organism; J44.0 Chronic obstructive pulmonary disease with (acute) lower respiratory infection; J44.1 Chronic obstructive pulmonary disease with (acute) exacerbation; H35.30 Unspecified macular degeneration; I48.91 Unspecified atrial fibrillation; F03.90 Unspecified dementia, unspecified severity, without behavioral disturbance, psychotic disturbance, mood disturbance, and anxiety; E11.22 Type 2 diabetes mellitus with diabetic chronic kidney disease; N18.9 Chronic kidney disease, unspecified; Z98.61 Coronary angioplasty status; Z79.82 Long term (current) use of aspirin; Z79.4 Long term (current) use of insulin; Z79.899 Other long term (current) drug therapy; Z90.49 Acquired absence of other specified parts of digestive tract
CPT/HCPCS: 36415; 71045; 80048; 80053; 82550; 82962; 83615; 83880; 84484; 85025; 85379; 86140; 87070; 87077; 87205; 93005; 94640; 99285; A9270-GY; J0456; J0696; J1650; J1815-GY; J1940; J2543; J3370; J7030; J7050; J7620-GY

== ENCOUNTER 2018-04-12 09:36 | Inpatient (IN) | payer MEDICARE, MEDICAID ==
[2018-04-12] MEDS ORDERED: Polyethylene Glycol 3350 Powder 17 GM Packet PO PRN (10:31)
[2018-04-12] MEDS ORDERED: Bisacodyl 5 MG Tab PO PRN (10:31)
[2018-04-12] MEDS ORDERED: Ondansetron 4 MG/2 ML SDV IV PRN (10:31)
[2018-04-12] MEDS ORDERED: Acetaminophen 325 MG Tab PO PRN (10:31)
[2018-04-12] MEDS ORDERED: Sodium Chloride 0.9% 10 ML Syringe FLUSH PRN ×2 (10:31)
[2018-04-12] MEDS: Albuterol/Ipratropium 3.0-0.5 MG/3 ML Neb Soln NEB SCH ×3 (11:50→19:58)
[2018-04-12] MEDS: Oxyquinoline/Emollient 0.3% Oint 1 OZ Canister TOP PRN (14:30)
[2018-04-12] MEDS: Piperacillin/Tazobactam 2.25 GM in Sodium Chloride 0.9% 50 ML IV SCH ×2 (15:15→21:55)
[2018-04-12] MEDS: Acetaminophen 500 MG Tab PO SCH (19:58)
[2018-04-12] MEDS: amLODIPine 2.5 MG Tab PO SCH (19:58)
[2018-04-12] MEDS: Formoterol/Mometasone 200-5 MCG 8.8 GM Inhaler IH SCH (19:59)
[2018-04-12] MEDS: ALPRAZolam 0.25 MG Tab PO PRN (21:30)
[2018-04-13] MEDS: Piperacillin/Tazobactam 2.25 GM in Sodium Chloride 0.9% 50 ML IV SCH ×4 (04:55→21:23)
[2018-04-13] MEDS: Acetaminophen 500 MG Tab PO SCH ×2 (07:38→20:03)
[2018-04-13] MEDS: Aspirin 81 MG Tab.EC PO SCH (07:40)
[2018-04-13] MEDS: Albuterol/Ipratropium 3.0-0.5 MG/3 ML Neb Soln NEB SCH ×4 (07:41→20:02)
[2018-04-13] MEDS: Furosemide 40 MG/4 ML VIAL IVPUSH SCH (07:42)
[2018-04-13] MEDS: Enoxaparin 30 MG/0.3 ML Syringe SUBCUT SCH (07:42)
[2018-04-13] MEDS: Polyvinyl Alcohol 1.4% Ophth Soln 15 ML Bottle EYEBOTH SCH (07:47)
[2018-04-13] MEDS: Insulin Detemir 100 Units/ML 3 ML Pen SUBCUT SCH (07:49)
[2018-04-13] MEDS: Formoterol/Mometasone 200-5 MCG 8.8 GM Inhaler IH SCH ×2 (07:49→20:03)
[2018-04-13] MEDS: Oxyquinoline/Emollient 0.3% Oint 1 OZ Canister TOP PRN (11:43)
[2018-04-13] MEDS: amLODIPine 2.5 MG Tab PO SCH (20:03)
[2018-04-14] MEDS: Piperacillin/Tazobactam 2.25 GM in Sodium Chloride 0.9% 50 ML IV SCH ×4 (04:20→21:52)
[2018-04-14] MEDS: Albuterol/Ipratropium 3.0-0.5 MG/3 ML Neb Soln NEB SCH ×4 (07:44→19:22)
[2018-04-14] MEDS: Acetaminophen 500 MG Tab PO SCH ×2 (07:56→19:30)
[2018-04-14] MEDS: Enoxaparin 30 MG/0.3 ML Syringe SUBCUT SCH (07:56)
[2018-04-14] MEDS: Polyvinyl Alcohol 1.4% Ophth Soln 15 ML Bottle EYEBOTH SCH (07:57)
[2018-04-14] MEDS: Aspirin 81 MG Tab.EC PO SCH (07:57)
[2018-04-14] MEDS: Furosemide 40 MG/4 ML VIAL IVPUSH SCH (07:57)
[2018-04-14] MEDS: Insulin Detemir 100 Units/ML 3 ML Pen SUBCUT SCH (07:58)
[2018-04-14] MEDS: Formoterol/Mometasone 200-5 MCG 8.8 GM Inhaler IH SCH ×2 (07:58→19:30)
[2018-04-14] MEDS: Oxyquinoline/Emollient 0.3% Oint 1 OZ Canister TOP PRN (08:00)
[2018-04-14] MEDS ORDERED: Menthol/Zinc Oxide Ointment 113 GM Tube TOP ONE (17:14)
[2018-04-14] MEDS ORDERED: Menthol/Zinc Oxide Ointment 113 GM Tube TOP PRN (17:37)
[2018-04-14] MEDS: ALPRAZolam 0.25 MG Tab PO PRN (17:53)
[2018-04-14] MEDS: amLODIPine 2.5 MG Tab PO SCH (19:22)
[2018-04-15] MEDS: Piperacillin/Tazobactam 2.25 GM in Sodium Chloride 0.9% 50 ML IV SCH ×4 (04:19→22:26)
[2018-04-15] MEDS: Formoterol/Mometasone 200-5 MCG 8.8 GM Inhaler IH SCH ×2 (08:47→19:48)
[2018-04-15] MEDS: Polyvinyl Alcohol 1.4% Ophth Soln 15 ML Bottle EYEBOTH SCH (08:48)
[2018-04-15] MEDS: Insulin Detemir 100 Units/ML 3 ML Pen SUBCUT SCH (08:50)
[2018-04-15] MEDS: Enoxaparin 30 MG/0.3 ML Syringe SUBCUT SCH (08:50)
[2018-04-15] MEDS: Furosemide 40 MG/4 ML VIAL IVPUSH SCH (08:52)
[2018-04-15] MEDS: Acetaminophen 500 MG Tab PO SCH ×2 (08:52→19:52)
[2018-04-15] MEDS: Albuterol/Ipratropium 3.0-0.5 MG/3 ML Neb Soln NEB SCH ×4 (08:53→19:48)
[2018-04-15] MEDS: Aspirin 81 MG Tab.EC PO SCH (08:53)
[2018-04-15] MEDS: LORazepam 2 MG/ML Syringe IVPUSH PRN (12:53)
[2018-04-15] MEDS: amLODIPine 2.5 MG Tab PO SCH (19:53)
[2018-04-16] MEDS: Piperacillin/Tazobactam 2.25 GM in Sodium Chloride 0.9% 50 ML IV SCH ×2 (04:06→09:07)
[2018-04-16] MEDS: Enoxaparin 30 MG/0.3 ML Syringe SUBCUT SCH (07:55)
[2018-04-16] MEDS: Albuterol/Ipratropium 3.0-0.5 MG/3 ML Neb Soln NEB SCH ×4 (07:56→19:49)
[2018-04-16] MEDS: Furosemide 40 MG/4 ML VIAL IVPUSH SCH (07:56)
[2018-04-16] MEDS: Acetaminophen 500 MG Tab PO SCH ×2 (07:56→19:49)
[2018-04-16] MEDS: Aspirin 81 MG Tab.EC PO SCH (07:56)
[2018-04-16] MEDS: ALPRAZolam 0.25 MG Tab PO PRN ×2 (08:01→17:01)
[2018-04-16] MEDS: Formoterol/Mometasone 200-5 MCG 8.8 GM Inhaler IH SCH ×2 (08:09→19:50)
[2018-04-16] MEDS: Polyvinyl Alcohol 1.4% Ophth Soln 15 ML Bottle EYEBOTH SCH (08:11)
[2018-04-16] MEDS: Insulin Detemir 100 Units/ML 3 ML Pen SUBCUT SCH (09:03)
[2018-04-16] MEDS: Clindamycin Phosphate in D5W 300 MG in Premix Bag 1 BAG IV SCH ×6 (09:45→21:48)
[2018-04-16] MEDS: Azithromycin 500 MG in Sodium Chloride 0.9% 250 ML IV SCH (10:26)
[2018-04-16] MEDS: amLODIPine 2.5 MG Tab PO SCH (19:50)
[2018-04-17] MEDS: Clindamycin Phosphate in D5W 300 MG in Premix Bag 1 BAG IV SCH ×8 (04:42→21:40)
[2018-04-17] MEDS: Albuterol/Ipratropium 3.0-0.5 MG/3 ML Neb Soln NEB SCH ×4 (07:37→20:28)
[2018-04-17] MEDS: Furosemide 40 MG/4 ML VIAL IVPUSH SCH (07:37)
[2018-04-17] MEDS: Aspirin 81 MG Tab.EC PO SCH (07:37)
[2018-04-17] MEDS: Enoxaparin 30 MG/0.3 ML Syringe SUBCUT SCH (07:37)
[2018-04-17] MEDS: Acetaminophen 500 MG Tab PO SCH ×2 (07:38→20:27)
[2018-04-17] MEDS: Formoterol/Mometasone 200-5 MCG 8.8 GM Inhaler IH SCH ×2 (07:38→20:42)
[2018-04-17] MEDS: Polyvinyl Alcohol 1.4% Ophth Soln 15 ML Bottle EYEBOTH SCH (07:38)
[2018-04-17] MEDS: Insulin Detemir 100 Units/ML 3 ML Pen SUBCUT SCH (07:38)
[2018-04-17] MEDS: ALPRAZolam 0.25 MG Tab PO PRN ×2 (07:56→22:51)
[2018-04-17] MEDS: Azithromycin 500 MG in Sodium Chloride 0.9% 250 ML IV SCH (09:50)
[2018-04-17] MEDS: Albuterol/Ipratropium 3.0-0.5 MG/3 ML Neb Soln NEB PRN (18:37)
[2018-04-17] MEDS: amLODIPine 2.5 MG Tab PO SCH (20:28)
[2018-04-17] MEDS: Morphine 2 MG/ML Syringe IVPUSH PRN (20:33)
[2018-04-18] MEDS: Clindamycin Phosphate in D5W 300 MG in Premix Bag 1 BAG IV SCH ×2 (03:30)
[2018-04-18] MEDS: Albuterol/Ipratropium 3.0-0.5 MG/3 ML Neb Soln NEB PRN (05:14)
[2018-04-18] MEDS: ALPRAZolam 0.25 MG Tab PO PRN (05:27)
[2018-04-18] MEDS: Insulin Detemir 100 Units/ML 3 ML Pen SUBCUT SCH (08:13)
[2018-04-18] MEDS: Polyvinyl Alcohol 1.4% Ophth Soln 15 ML Bottle EYEBOTH SCH (08:15)
[2018-04-18] MEDS: Formoterol/Mometasone 200-5 MCG 8.8 GM Inhaler IH SCH (08:16)
[2018-04-18] MEDS: Enoxaparin 30 MG/0.3 ML Syringe SUBCUT SCH (08:25)
[2018-04-18] MEDS: Aspirin 81 MG Tab.EC PO SCH (08:25)
[2018-04-18] MEDS: Acetaminophen 500 MG Tab PO SCH (08:25)
[2018-04-18] MEDS: Furosemide 40 MG/4 ML VIAL IVPUSH SCH (08:25)
[2018-04-18] MEDS: Albuterol/Ipratropium 3.0-0.5 MG/3 ML Neb Soln NEB SCH (08:26)
[2018-04-18 08:51] VITALS: BP 144/54
--- NOTE | 2018-04-18 10:35 | PCM.PN ---
- General Info Date of Service: 04/18/18 Admission Dx/Problem (Free Text): Acute CHF Pneumonia Acute Renal Failure COPD Exacerbation Functional Status: Reports: Pain Controlled. Denies: Tolerating Diet, Ambulating - Review of Systems General: Reports: Weakness, Fatigue, Malaise HEENT: Reports: No Symptoms Pulmonary: Reports: Shortness of Breath, Cough, Wheezing Cardiovascular: Denies: Edema Gastrointestinal: Reports: No Symptoms Skin: Reports: No Symptoms Neurological: Reports: Confusion, Weakness - Patient Data Vitals - Most Recent: Last Vital Signs Temp 97.4 F 04/18/18 08:25 Pulse 85 04/18/18 08:00 Resp 24 H 04/18/18 08:00 BP 144/54 H 04/18/18 08:00 Pulse Ox 86 L 04/18/18 08:00 Weight - Most Recent: 156 lb 14.4 oz I&O - Last 24 Hours: Intake & Output 04/17/18 04/18/18 04/18/18 22:59 06:59 14:59 Intake Total 100 Balance 100 Lab Results Last 24 Hours: Laboratory Results - last 24 hr 04/17/18 04/18/18 Range/Units 20:26 07:46 POC Glucose 184 H 164 H (75-105) mg/dl Med Orders - Current: Current Medications Acetaminophen (Tylenol) 650 mg PO Q4H PRN PRN Reason: Pain (Mild 1-3)/fever Albuterol/Ipratropium (Duoneb 3.0-0.5 Mg/3 Ml) 3 ml NEB Q4H PRN PRN Reason: Shortness Of Breath/wheezing Last Admin: 04/18/18 05:14 Dose: 3 ml Alprazolam (Xanax) 0.25 mg PO Q6H PRN PRN Reason: Anxiety Last Admin: 04/18/18 05:27 Dose: 0.25 mg Bisacodyl (Dulcolax) 5 mg PO DAILY PRN PRN Reason: Constipation Calamine/Phenol (Calmoseptine) 0 gm TOP ASDIRECTED PRN PRN Reason: Wound Care Last Admin: 04/15/18 08:49 Dose: 1 applic Lorazepam (Ativan) 0.5 mg IVPUSH Q6H PRN PRN Reason: Anxiety Last Admin: 04/15/18 12:53 Dose: 0.5 mg Morphine Sulfate (Morphine) 2 mg IVPUSH Q2H PRN PRN Reason: Anxiety Last Admin: 04/17/18 20:33 Dose: 2 mg Ondansetron HCl (Zofran) 4 mg IV Q4H PRN PRN Reason: Nausea/Vomiting Oxyquinoline Sulfate (Bag [place] Oint) 0 oz TOP ASDIRECTED PRN PRN Reason: skin breakdown Last Admin: 04/14/18 08:00 Dose: 1 applic Sodium Chloride (Saline Flush) 10 ml FLUSH ASDIRECTED PRN PRN Reason: Keep Vein Open Discontinued Medications Acetaminophen (Tylenol Extra Strength) 1,000 mg PO BID [facility] Last Admin: 04/18/18 08:25 Dose: 1,000 mg Albuterol/Ipratropium (Duoneb 3.0-0.5 Mg/3 Ml) 3 ml NEB QIDRT [facility] Last Admin: 04/18/18 08:26 Dose: 3 ml Amlodipine Besylate (Norvasc) 5 mg PO BEDTIME [facility] Last Admin: 04/17/18 20:28 Dose: 5 mg Artificial Tears (Liquitears 1.4% Ophth Soln) 0 ml EYEBOTH DAILY [facility] Last Admin: 04/18/18 08:15 Dose: 1 drop Aspirin (Halfprin) 81 mg PO DAILY [facility] Last Admin: 04/18/18 08:25 Dose: 81 mg Calamine/Phenol (Calmoseptine) Confirm Administered Dose 113 gm TOP .STK-MED ONE Stop: 04/14/18 17:15 Last Admin: 04/14/18 17:31 Dose: 1 applic Enoxaparin Sodium (Lovenox) 30 mg SUBCUT DAILY [facility] Last Admin: 04/18/18 08:25 Dose: 30 mg Furosemide (Lasix) 40 mg IVPUSH DAILY [facility] Last Admin: 04/18/18 08:25 Dose: 40 mg Piperacillin Sod/Tazobactam (Sod 2.25 gm/ Sodium Chloride) 50 mls @ 100 mls/hr IV Q6H [facility] Last Admin: 04/16/18 09:07 Dose: 100 mls/hr Vancomycin HCl 1 gm/ Sodium (Chloride) 250 mls @ 166.667 mls/hr IV Q48H [facility] Last Admin: 04/16/18 09:07 Dose: 166.667 mls/hr Azithromycin 500 mg/ Sodium (Chloride) 250 mls @ 250 mls/hr IV Q24H [facility] Last Admin: 04/17/18 09:50 Dose: 250 mls/hr Clindamycin Phosphate 300 mg/ (Premix) 50 mls @ 100 mls/hr IV Q6H [facility] Last Admin: 04/18/18 03:30 Dose: 100 mls/hr Insulin Detemir (Levemir) 22 unit SUBCUT DAILY [facility] Last Admin: 04/16/18 09:03 Dose: 10 unit Insulin Detemir (Levemir) 10 unit SUBCUT DAILY [facility] Last Admin: 04/18/18 08:13 Dose: 10 units Mometasone Furoate/Formoterol Fumar (Dulera 200-5 Mcg) 0 puff IH BID [facility] Last Admin: 04/18/18 08:16 Dose: 2 puff Polyethylene Glycol (Miralax) 17 gm PO DAILY PRN PRN Reason: Constipation Sodium Chloride (Saline Flush) 10 ml FLUSH ASDIRECTED PRN PRN Reason: Keep Vein Open Vancomycin HCl (Pharmacy To Dose - Vancomycin) 1 dose .XX ASDIRECTED [facility] - Exam Quality Assessment: Supplemental Oxygen General: Sedated Neck: Supple Lungs: Decreased Breath Sounds, Crackles Cardiovascular: Regular Rate, Regular Rhythm GI/Abdominal Exam: Normal Bowel Sounds, Soft, Non-Tender Extremities: Normal Inspection, No Pedal Edema Skin: Warm, Dry Neurological: No New Focal Deficit - Problem List & Annotations (1) Comfort measures only status SNOMED Code(s): 83458545037105 Code(s): Z51.5 - ENCOUNTER FOR PALLIATIVE CARE Status: Acute Current Visit: Yes (2) CHF, Congestive heart failure SNOMED Code(s): 98270804 Code(s): I50.9 - HEART FAILURE, UNSPECIFIED Status: Acute Priority: High Current Visit: No Annotation/Comment:: Acute on Chronic Systolic Congestive Heart Failure (3) COPD (chronic obstructive pulmonary disease) SNOMED Code(s): 36972953 Code(s): J44.9 - CHRONIC OBSTRUCTIVE PULMONARY DISEASE, UNSPECIFIED Status : Acute Priority: High Current Visit: No Qualifiers: (4) Palliative care patient SNOMED Code(s): 444440184 Code(s): Z51.5 - ENCOUNTER FOR PALLIATIVE CARE Status: Acute Priority: High Current Visit: No (5) Pneumonia SNOMED Code(s): 748698444 Code(s): J18.9 - PNEUMONIA, UNSPECIFIED ORGANISM Status: Acute Priority: High Current Visit: No (6) Renal failure (ARF), acute on chronic SNOMED Code(s): 017834563 Code(s): N17.9 - ACUTE KIDNEY FAILURE, UNSPECIFIED; N18.9 - CHRONIC KIDNEY DISEASE, UNSPECIFIED Status: Acute Priority: High Current Visit: No (7) CAD (coronary artery disease) SNOMED Code(s): 92442773 Code(s): I25.10 - ATHSCL HEART DISEASE OF [place] CORONARY ARTERY W/O ANG PCTRS Status: Chronic Priority: Medium Current Visit: No - Problem List Review Problem List Initiated/Reviewed/Updated: Yes - My Orders Last 24 Hours: My Active Orders 04/18/18 09:16 Comfort Measures [OM.PC] Routine - Assessment Assessment:: End Stage COPD Comfort Care Status - Plan Plan:: Patient has continued to decline in status despite ongoing IV antibiotics, Lasix , nebs and oxygen. Did contact Wes, patient's son and POA as we have had several conversations about status and not responding to therapy. Had family meeting earlier about possibly comfort cares if continued to decline. They are in agreement that at this point, measures have not been successful. Will switch to comfort care only status. Stop all meds except Morphine and Xanax and Ativan as needed. Nebs as needed. Family in agreement with this plan.
[2018-04-18] MEDS: LORazepam 2 MG/ML Syringe IVPUSH PRN ×2 (12:13→18:17)
[2018-04-18] MEDS: Morphine 2 MG/ML Syringe IVPUSH PRN ×3 (13:52→22:56)
[2018-04-18] MEDS: Morphine 2 MG/ML Syringe IVPUSH SCH (20:00)
[2018-04-19] MEDS: LORazepam 2 MG/ML Syringe IVPUSH PRN ×2 (02:20→08:03)
[2018-04-19] MEDS: Morphine 2 MG/ML Syringe IVPUSH SCH (07:43)
--- NOTE | 2018-04-22 20:15 | PCM.DCSUM1 ---
Discharge Summary - Hospital Course Free Text/Narrative:: Patient initially presented to ER from [facility] for ongoing hypoxia. Patient had been hospitalized previous for same. He was treated for acute CHF, aspiration pneumonia and renal failure. Presented back again after 4 days with again a drop in oxygen sats on 5 liters. He was readmitted for pneumonia, CHF and renal failure. During acute stay, was treated with Zosyn and Vancomycin. Continued to have ongoing hypoxia, requiring high flow oxygen to maintain sats greater than 90%. Transferred to swing bed for ongoing IV antibiotics. - Discharge Data Discharge Date: 04/19/18 Discharge Disposition: 20 Condition: Good - Discharge Diagnosis/Problem(s) (1) Comfort measures only status SNOMED Code(s): 17634902540102 ICD Code: Z51.5 - ENCOUNTER FOR PALLIATIVE CARE Status: Acute (2) CHF, Congestive heart failure SNOMED Code(s): 39190925 ICD Code: I50.9 - HEART FAILURE, UNSPECIFIED Status: Acute Priority: High Problem Details: Acute on Chronic Systolic Congestive Heart Failure (3) COPD (chronic obstructive pulmonary disease) SNOMED Code(s): 93593195 ICD Code: J44.9 - CHRONIC OBSTRUCTIVE PULMONARY DISEASE, UNSPECIFIED Status : Acute Priority: High Qualifiers: (4) Palliative care patient SNOMED Code(s): 733961896 ICD Code: Z51.5 - ENCOUNTER FOR PALLIATIVE CARE Status: Acute Priority: High (5) Pneumonia SNOMED Code(s): 706272798 ICD Code: J18.9 - PNEUMONIA, UNSPECIFIED ORGANISM Status: Acute Priority : High (6) Renal failure (ARF), acute on chronic SNOMED Code(s): 169413749 ICD Code: N17.9 - ACUTE KIDNEY FAILURE, UNSPECIFIED; N18.9 - CHRONIC KIDNEY DISEASE, UNSPECIFIED Status: Acute Priority: High (7) CAD (coronary artery disease) SNOMED Code(s): 87195229 ICD Code: I25.10 - ATHSCL HEART DISEASE OF [place] CORONARY ARTERY W/O ANG PCTRS Status: Chronic Priority: Medium - Patient Summary/Data Hospital Course: Patient was transferred to swing bed for ongoing IV antibiotics. Did continue to require high flow oxygen. Chest xray worsened over his stay despite meds and switching x3. Family was kept in constant contact regarding patient status. Family consults were held. As he was not showing improvement and with concerns in regards to CHF and renal failure, family opted to discontinue all cares, switch to comfort cares. IV Morphine and Ativan given for comfort. as a result of pneumonia/hypoxia. - Discharge Plan Home Medications: Home Meds Aspirin [Halfprin] 81 mg PO DAILY 06/06/14 [History] Multivitamin [Multi-Vitamin Daily] 1 tab PO DAILY 06/06/14 [History] Albuterol Sulfate [Ventolin Hfa] 2 inh INH QID 10/15/15 [History] Albuterol/Ipratropium [DuoNeb 3.0-0.5 MG/3 ML] 3 ml NEB QIDRT #28 neb 10/22/15 [ Rx] Acetaminophen [Tylenol Extra Strength] 1,000 mg PO BID 03/29/18 [History] Bisacodyl [Dulcolax] 5 mg PO DAILY PRN 03/29/18 [History] Dextran 70/Hypromellose [Artificial Tears] 1 each OP DAILY 03/29/18 [History] Fluticasone/Salmeterol [Advair 250-50 Diskus] 1 each IH BID 03/29/18 [History] Insulin Detemir [Levemir Flextouch] 22 unit SQ DAILY 03/29/18 [History] amLODIPine Besylate [Norvasc] 5 mg PO BEDTIME 03/29/18 [History] Clindamycin HCl [Cleocin HCl] 300 mg PO QID #28 capsule 04/03/18 [Rx] Furosemide [Lasix] 40 mg PO DAILY #30 tablet 04/03/18 [Rx] Polyethylene Glycol 3350 [MiraLAX] 17 gm PO DAILY #30 packet 04/03/18 [Rx] - Discharge Summary/Plan Comment DC Time >30 min.: No Discharge Summary/Plan Comment: - General Info Date of Service: 04/19/18 - Patient Data Vitals - Most Recent: Last Vital Signs Temp 97.4 F 04/18/18 08:25 Pulse 85 04/18/18 08:00 Resp 24 H 04/18/18 08:00 BP 144/54 H 04/18/18 08:00 Pulse Ox 86 L 04/18/18 08:00 Weight - Most Recent: 156 lb 14.4 oz Med Orders - Current: Current Medications Discontinued Medications Acetaminophen (Tylenol) 650 mg PO Q4H PRN PRN Reason: Pain (Mild 1-3)/fever Acetaminophen (Tylenol Extra Strength) 1,000 mg PO BID [facility] Last Admin: 04/18/18 08:25 Dose: 1,000 mg Albuterol/Ipratropium (Duoneb 3.0-0.5 Mg/3 Ml) 3 ml NEB Q4H PRN PRN Reason: Shortness Of Breath/wheezing Last Admin: 04/18/18 05:14 Dose: 3 ml Albuterol/Ipratropium (Duoneb 3.0-0.5 Mg/3 Ml) 3 ml NEB QIDRT [facility] Last Admin: 04/18/18 08:26 Dose: 3 ml Alprazolam (Xanax) 0.25 mg PO Q6H PRN PRN Reason: Anxiety Last Admin: 04/18/18 05:27 Dose: 0.25 mg Amlodipine Besylate (Norvasc) 5 mg PO BEDTIME [facility] Last Admin: 04/17/18 20:28 Dose: 5 mg Artificial Tears (Liquitears 1.4% Ophth Soln) 0 ml EYEBOTH DAILY [facility] Last Admin: 04/18/18 08:15 Dose: 1 drop Aspirin (Halfprin) 81 mg PO DAILY [facility] Last Admin: 04/18/18 08:25 Dose: 81 mg Bisacodyl (Dulcolax) 5 mg PO DAILY PRN PRN Reason: Constipation Calamine/Phenol (Calmoseptine) Confirm Administered Dose 113 gm TOP .STK-MED ONE Stop: 04/14/18 17:15 Last Admin: 04/14/18 17:31 Dose: 1 applic Calamine/Phenol (Calmoseptine) 0 gm TOP ASDIRECTED PRN PRN Reason: Wound Care Last Admin: 04/15/18 08:49 Dose: 1 applic Enoxaparin Sodium (Lovenox) 30 mg SUBCUT DAILY [facility] Last Admin: 04/18/18 08:25 Dose: 30 mg Furosemide (Lasix) 40 mg IVPUSH DAILY [facility] Last Admin: 04/18/18 08:25 Dose: 40 mg Piperacillin Sod/Tazobactam (Sod 2.25 gm/ Sodium Chloride) 50 mls @ 100 mls/hr IV Q6H [facility] Last Admin: 04/16/18 09:07 Dose: 100 mls/hr Vancomycin HCl 1 gm/ Sodium (Chloride) 250 mls @ 166.667 mls/hr IV Q48H [facility] Last Admin: 04/16/18 09:07 Dose: 166.667 mls/hr Azithromycin 500 mg/ Sodium (Chloride) 250 mls @ 250 mls/hr IV Q24H [facility] Last Admin: 04/17/18 09:50 Dose: 250 mls/hr Clindamycin Phosphate 300 mg/ (Premix) 50 mls @ 100 mls/hr IV Q6H [facility] Last Admin: 04/18/18 03:30 Dose: 100 mls/hr Insulin Detemir (Levemir) 22 unit SUBCUT DAILY [facility] Last Admin: 04/16/18 09:03 Dose: 10 unit Insulin Detemir (Levemir) 10 unit SUBCUT DAILY [facility] Last Admin: 04/18/18 08:13 Dose: 10 units Lorazepam (Ativan) 0.5 mg IVPUSH Q6H PRN PRN Reason: Anxiety Last Admin: 04/19/18 08:03 Dose: 0.5 mg Mometasone Furoate/Formoterol Fumar (Dulera 200-5 Mcg) 0 puff IH BID [facility] Last Admin: 04/18/18 08:16 Dose: 2 puff Morphine Sulfate (Morphine) 2 mg IVPUSH Q2H PRN PRN Reason: Anxiety Last Admin: 04/18/18 22:56 Dose: 2 mg Morphine Sulfate (Morphine) 2 mg IVPUSH Q12H [facility] Last Admin: 04/19/18 07:43 Dose: 2 mg Ondansetron HCl (Zofran) 4 mg IV Q4H PRN PRN Reason: Nausea/Vomiting Oxyquinoline Sulfate (Bag [place] Oint) 0 oz TOP ASDIRECTED PRN PRN Reason: skin breakdown Last Admin: 04/14/18 08:00 Dose: 1 applic Polyethylene Glycol (Miralax) 17 gm PO DAILY PRN PRN Reason: Constipation Sodium Chloride (Saline Flush) 10 ml FLUSH ASDIRECTED PRN PRN Reason: Keep Vein Open Sodium Chloride (Saline Flush) 10 ml FLUSH ASDIRECTED PRN PRN Reason: Keep Vein Open Vancomycin HCl (Pharmacy To Dose - Vancomycin) 1 dose .XX ASDIRECTED [facility]
== END 2018-04-19 14:45 | disposition expired | DRG 193 ==
LOC: UNDOADMIN 09:36 → CC.MS 09:36 → UNDODISIN 04-19 14:45
PROVIDERS: ADMIT Family Medicine; ATTEND Family Medicine
DX: J18.9 Pneumonia, unspecified organism (principal); I50.23 Acute on chronic systolic (congestive) heart failure; I13.0 Hypertensive heart and chronic kidney disease with heart failure and stage 1 through stage 4 chronic kidney disease, or unspecified chronic kidney disease; J44.0 Chronic obstructive pulmonary disease with (acute) lower respiratory infection; J44.1 Chronic obstructive pulmonary disease with (acute) exacerbation; N17.9 Acute kidney failure, unspecified; R09.02 Hypoxemia; Z66 Do not resuscitate; Z51.5 Encounter for palliative care; N18.9 Chronic kidney disease, unspecified; Z79.899 Other long term (current) drug therapy; Z79.82 Long term (current) use of aspirin; Z79.4 Long term (current) use of insulin; Z87.01 Personal history of pneumonia (recurrent)
CPT/HCPCS: 36415; 71045; 80048; 80202; 82962; 85025; 86140; 94640; A9270-GY; J0456; J1650; J1940; J2060; J2270; J2543; J3370; J3490; J7050; J7620-GY